=== PATIENT | female | born 1955 | race Caucasian/White ===

== ENCOUNTER 2017-07-10 18:02 | Inpatient (IN) | payer BC ==
[~2017-07-10] VITALS: Ht 165.1 cm; Wt 74.9 kg
[2017-07-10] MEDS ORDERED: IV NORMAL SALINE 1000ML BAG 1,000 ML IV SCH (19:12)
[2017-07-10] MEDS ORDERED: ONDANSETRON PF 4 MG/2 ML VIAL. IV ONE (19:15)
[2017-07-10 19:23] LABS: BILIRUBIN,URINE NEGATIVE (NEG); GLUCOSE,URINE NEGATIVE (NEG); NITRITE,URINE NEGATIVE (NEG); PROTEIN,URINE NEGATIVE (NEG-TRACE); UROBILINOGEN,URINE 0.2 mg/dL (0.2 mg/dL)
[2017-07-10 19:37] LABS: BASO % 0 % (0-3); EOS % 1 % (0-3); HEMATOCRIT 34.6 % (36.0-47.0); HEMOGLOBIN 11.5 g/dL (12.0-15.5); LYMPH % 8 % (24-48); MEAN CORPUSCULAR HEMOGLOBIN 32 pg (25-35); MEAN CORPUSCULAR HGB CONC 33 g/dL (31-37); MEAN CORPUSCULAR VOLUME 95 fL (79-100); MONO % 6 % (0-9); NEUT % 85 % (31-73); PLATELET COUNT 258 x10^3/uL (140-400); RED BLOOD COUNT 3.65 x10^6/uL (3.50-5.40); RED CELL DISTRIBUTION WIDTH 12.7 % (11.5-14.5); WHITE BLOOD COUNT 12.8 x10^3/uL (4.0-11.0)
[2017-07-10] MEDS: HYDROmorphone 2 MG/ML VIAL IV/SQ PRN ×3 (19:45→21:20)
[2017-07-10 19:46] LABS: BACTERIA,URINE 0 /HPF (0-FEW); WBC,URINE RARE /HPF (0-4)
[2017-07-10 19:49] LABS: CALCIUM 8.4 mg/dL (8.5-10.1); CREATININE 0.6 mg/dL (0.6-1.0); POTASSIUM 3.6 mmol/L (3.5-5.1)
[2017-07-10 19:55] LABS: ALBUMIN 3.7 g/dL (3.4-5.0); DIRECT BILIRUBIN 0.2 mg/dL (0.0-0.2); TOTAL BILIRUBIN 0.4 mg/dL (0.2-1.0); TOTAL PROTEIN 6.6 g/dL (6.4-8.2)
[2017-07-10] MEDS ORDERED: CONTRAST GIVEN MC PRN (20:15)
[2017-07-10] MEDS ORDERED: IOHEXOL 300 MG/ML 100ML VIAL. IV ONE (20:15)
[2017-07-10 20:18] LABS: % EOS 1 % (0-5)
[2017-07-10 20:19] LABS: PLT ESTIMATE ADEQUATE (ADEQUATE)
--- NOTE | 2017-07-10 20:46 | RAD ---
CT ABD PELV W/ IV CONTRST ONLY dated 07/10/2017 8:19 PM Indication:severe rt sided abd pain today, Comparison: November 29, 2013 exam. Technique: Following injection of 75 mL of Omnipaque 300 IV, images were obtained through the abdomen and pelvis. No oral contrast was given. One or more of the following individualized dose reduction techniques were utilized for this examination: 1. Automated exposure control 2. Adjustment of the mA and/or kV according to patient size 3. Use of iterative reconstruction technique Findings: The liver has a prominent Oseas's lobe. It is otherwise unremarkable. The spleen is normal in size without focal lesions. The pancreas, adrenal glands, and kidneys are unremarkable except for small parapelvic renal cysts bilaterally and a small cyst in the lower pole the right kidney which are unchanged. There has been a cholecystectomy. The unopacified bowel loops are unremarkable. The appendix is normal in appearance. There is no free fluid. The uterus is unremarkable. No pelvic mass is seen. No adenopathy is identified. IMPRESSION: The CT of the abdomen and pelvis shows no significant abnormality. The appendix is normal. Electronically signed by: Ros Barone MD (07/10/2017 8:42 PM) [facility]
[2017-07-10] MEDS ORDERED: ONDANSETRON PF 4 MG/2 ML VIAL. IV PRN (21:00)
--- NOTE | 2017-07-10 21:09 | PHYS DOC ---
Past Medical History Past Medical History: Asthma, Depression, High Cholesterol, Hypertension Past Surgical History: Cholecystectomy, Knee Replacement, Tonsillectomy, Other Additional Past Surgical Histo: carpal tunnel Alcohol Use: Occasionally Drug Use: None Adult General Chief Complaint Chief Complaint: ABDOMINAL PAIN HPI HPI 62-year-old female presenting the emergency department today with abdominal pain. She complains of periumbilical/epigastric abdominal pain that radiates to her back. It is sharp pain that is moderate intermittent and associated with nausea. She denies vomiting. She denies fevers or chills. Review of systems is negative for chest pain shortness of breath. Negative for fevers diarrhea or blood in stool. All other review of systems is negative unless otherwise noted in history of present illness. ED course: 62-year-old female presenting with epigastric/periumbilical abdominal pain. Upon arrival the patient is afebrile with a normal heart rate. Pertinent physical exam findings show soft nontender abdomen. Otherwise lungs are clear to auscultation. Blood work obtained. IV established IV fluids administered. EKG ordered and obtained which shows sinus rhythm with a regular rate. ST segments congruent. Not suggestive of ACS. Lipase notably elevated. Urinalysis negative. Chemistry unremarkable other than mild transaminitis. She has a history of cholecystectomy. CT the abdomen pelvis obtained which showed no evidence of choledocholithiasis. I discussed the case with Dr. Herrera who accepted the patient for admission. I placed a GI consult. I placed basic bridge orders and the patient was subsequent admitted to our hospital for further evaluation and care. Review of Systems Review of Systems SEE ABOVE. Current Medications Current Medications Current Medications Medications (Trade) Dose Ordered Sig/Maria Eugenia Start Time Stop Time Status Last Admin Dose Admin Hydromorphone HCl (Dilaudid) 0.5 mg PRN Q15MIN PRN 07/10/17 19:15 07/11/17 19:14 07/10/17 20:49 0.5 MG Info (Do NOT chart on this entry -- for MONITORING) 1 each PRN DAILY PRN 07/10/17 20:15 07/12/17 20:14 Iohexol (Omnipaque 300 Mg/ml) 75 ml 1X ONCE 07/10/17 20:15 07/10/17 20:16 DC 07/10/17 20:22 75 ML Morphine Sulfate 2 mg PRN Q2HR PRN 07/10/17 21:00 07/11/17 20:59 UNV Ondansetron HCl (Zofran) 4 mg PRN Q8HRS PRN 07/10/17 21:00 07/11/17 20:59 UNV Sodium Chloride 1,000 ml @ 100 mls/hr Q10H 07/10/17 20:55 07/11/17 20:54 UNV Allergies Allergies Allergies Coded Allergies Type Severity Reaction Last Updated Verified adhesive Allergy Unknown STERISTRIPS 11/29/13 Yes aspirin Allergy Unknown 11/29/13 Yes butalbital Allergy Unknown 11/29/13 Yes caffeine Allergy Unknown 11/29/13 Yes latex Allergy Unknown 11/29/13 Yes Physical Exam Physical Exam SEE ABOVE Constitutional: Well developed, well nourished, no acute distress HENT: Normocephalic, atraumatic, bilateral external ears normal, oropharynx moist, no oral exudates, nose normal. [] Eyes: PERRLA, EOMI, conjunctiva normal, no discharge. [] Neck: Normal range of motion, no tenderness, supple, no stridor. [] Cardiovascular:Heart rate regular rhythm, no murmur [] Lungs & Thorax: Bilateral breath sounds clear to auscultation [] Abdomen: Bowel sounds normal, soft, no tenderness, no masses, no pulsatile masses. [] Skin: Warm, dry, no erythema, no rash. [] Back: No tenderness, no CVA tenderness. [] Extremities: No tenderness, no cyanosis, no clubbing, ROM intact, no edema. [] Neurologic: Alert and oriented X 3, normal motor function, normal sensory function, no focal deficits noted. [] Psychologic: Affect normal, judgement normal, mood normal. [] Current Patient Data Vital Signs Vital Signs Date Time Temp Pulse Resp B/P (MAP) Pulse Ox O2 Delivery O2 Flow Rate FiO2 07/10/17 20:49 18 94 Room Air 07/10/17 20:46 79 126/59 (81) Lab Values Laboratory Tests Test 07/10/17 18:50 07/10/17 19:28 Urine Collection Type Unknown Urine Color Yellow Urine Clarity Clear Urine pH 6.0 Urine Specific [place] 1.015 Urine Protein Negative mg/dL (NEG-TRACE) Urine Glucose (UA) Negative mg/dL (NEG) Urine Ketones (Stick) Negative mg/dL (NEG) Urine Blood Negative (NEG) Urine Nitrite Negative (NEG) Urine Bilirubin Negative (NEG) Urine Urobilinogen Dipstick 0.2 mg/dL (0.2 mg/dL) Urine Leukocyte Esterase Negative (NEG) Urine RBC 1-2 /HPF (0-2) Urine WBC Rare /HPF (0-4) Urine Bacteria 0 /HPF (0-FEW) White Blood Count 12.8 x10^3/uL (4.0-11.0) H Red Blood Count 3.65 x10^6/uL (3.50-5.40) Hemoglobin 11.5 g/dL (12.0-15.5) L Hematocrit 34.6 % (36.0-47.0) L Mean Corpuscular Volume 95 fL (79-100) Mean Corpuscular Hemoglobin 32 pg (25-35) Mean Corpuscular Hemoglobin Concent 33 g/dL (31-37) Red Cell Distribution Width 12.7 % (11.5-14.5) Platelet Count 258 x10^3/uL (140-400) Neutrophils (%) (Auto) 85 % (31-73) H Lymphocytes (%) (Auto) 8 % (24-48) L Monocytes (%) (Auto) 6 % (0-9) Eosinophils (%) (Auto) 1 % (0-3) Basophils (%) (Auto) 0 % (0-3) Neutrophils # (Auto) 10.9 x10^3uL (1.8-7.7) H Lymphocytes # (Auto) 1.0 x10^3/uL (1.0-4.8) Monocytes # (Auto) 0.8 x10^3/uL (0.0-1.1) Eosinophils # (Auto) 0.1 x10^3/uL (0.0-0.7) Basophils # (Auto) 0.0 x10^3/uL (0.0-0.2) Segmented Neutrophils % 74 % (35-66) H Band Neutrophils % 15 % (0-9) H Lymphocytes % 6 % (24-48) L Monocytes % 4 % (0-10) Eosinophils % 1 % (0-5) Platelet Estimate Adequate (ADEQUATE) Giant Platelets Few Sodium Level 138 mmol/L (136-145) Potassium Level 3.6 mmol/L (3.5-5.1) Chloride Level 103 mmol/L (98-107) Carbon Dioxide Level 23 mmol/L (21-32) Anion Gap 12 (6-14) Blood Urea Nitrogen 19 mg/dL (7-20) Creatinine 0.6 mg/dL (0.6-1.0) Estimated GFR (Cockcroft-Gault) 102.0 Glucose Level 88 mg/dL (70-99) Lactic Acid Level 1.8 mmol/L (0.4-2.0) Calcium Level 8.4 mg/dL (8.5-10.1) L Total Bilirubin 0.4 mg/dL (0.2-1.0) Direct Bilirubin 0.2 mg/dL (0.0-0.2) Aspartate Amino Transferase (AST) 434 U/L (15-37) H Alanine Aminotransferase (ALT) 164 U/L (14-59) H Alkaline Phosphatase 136 U/L (46-116) H Troponin I Quantitative < 0.017 ng/mL (0.000-0.055) Total Protein 6.6 g/dL (6.4-8.2) Albumin 3.7 g/dL (3.4-5.0) Lipase 820 U/L (73-393) H Laboratory Tests 07/10/17 19:28 Laboratory Tests 07/10/17 19:28 EKG EKG [] Radiology/Procedures Radiology/Procedures [] Course & Med Decision Making Course & Med Decision Making Pertinent Labs and Imaging studies reviewed. (See chart for details) [] Dragon Disclaimer Dragon Disclaimer This electronic medical record was generated, in whole or in part, using a voice recognition dictation system. Departure Departure Impression: Primary Impression: Pancreatitis Disposition: ADMITTED INPATIENT Admitting Physician: Barb Herrera Condition: STABLE Referrals: JOMAR MCNEAL Jr, MD (PCP) ARY BURCIAGA MD Jul 10, 2017 21:08
[2017-07-10 21:57] VITALS: BP 130/79
[2017-07-10 23:00] VITALS: BP 122/66
[2017-07-10] MEDS: IV NORMAL SALINE 1000ML BAG 1,000 ML IV SCH (23:08)
[2017-07-10] MEDS: MORPHINE SULFATE 4 MG/ML DISP.SYRIN. IV PRN (23:16)
[2017-07-11 03:00] VITALS: BP 141/76
[2017-07-11] MEDS: MORPHINE SULFATE 4 MG/ML DISP.SYRIN. IV PRN ×4 (03:08→09:52)
--- NOTE | 2017-07-11 06:39 | EKG ---
[facility] [address] [place] [address] Test Date: 2017-07-10 Test Time: 19:30:53 Pat Name: AMIRA ALEX Department: Room: 426 1 Gender: F Teachers Assistant: : 1955 Requested By: ARY BURCIAGA Order Number: [id number] Reading MD: Tristian Monae MD Measurements Intervals [place] Rate: 73 P: 41 MA: 192 QRS: 42 QRSD: 90 T: 59 QT: 388 QTc: 431 Interpretive Statements SINUS RHYTHM Electronically Signed On 07-11-2017 10:27:29 [employer] by Tristian Monae MD
[2017-07-11 07:00] VITALS: BP 132/73
[2017-07-11] MEDS: IV NORMAL SALINE 1000ML BAG 1,000 ML IV SCH ×3 (07:33→23:00)
[2017-07-11] MEDS ORDERED: ONDANSETRON PF 4 MG/2 ML VIAL. IV PRN (09:15)
[2017-07-11] MEDS ORDERED: ACETAMINOPHEN 325 MG TABLET. PO PRN (09:15)
[2017-07-11] MEDS ORDERED: DOCUSATE SODIUM 100 MG CAPSULE. PO PRN (09:15)
[2017-07-11] MEDS ORDERED: MORPHINE SULFATE 4 MG/ML DISP.SYRIN. IV PRN (09:15)
[2017-07-11] MEDS ORDERED: hydrALAZINE 20 MG/ML VIAL. IVP PRN (09:15)
[2017-07-11 10:20] LABS: BASO % 0 % (0-3); EOS % 2 % (0-3); HEMATOCRIT 34.8 % (36.0-47.0); HEMOGLOBIN 11.4 g/dL (12.0-15.5); LYMPH # 0.8 x10^3/uL (1.0-4.8); LYMPH % 10 % (24-48); MEAN CORPUSCULAR HEMOGLOBIN 31 pg (25-35); MEAN CORPUSCULAR HGB CONC 33 g/dL (31-37); MEAN CORPUSCULAR VOLUME 95 fL (79-100); MONO % 8 % (0-9); NEUT % 81 % (31-73); PLATELET COUNT 221 x10^3/uL (140-400); RED BLOOD COUNT 3.65 x10^6/uL (3.50-5.40); RED CELL DISTRIBUTION WIDTH 12.8 % (11.5-14.5); WHITE BLOOD COUNT 8.3 x10^3/uL (4.0-11.0)
[2017-07-11 10:33] LABS: CREATININE 0.6 mg/dL (0.6-1.0); POTASSIUM 3.3 mmol/L (3.5-5.1)
[2017-07-11 11:00] VITALS: BP 117/76
[2017-07-11] MEDS ORDERED: POTASSIUM CHLORIDE 20 MEQ TABLET.ER. PO ONE (11:30)
[2017-07-11] MEDS ORDERED: methylPREDNISolone SOD SUCC PF 125 MG/2 ML VIAL. IV SCH (14:00)
--- NOTE | 2017-07-11 14:21 | PDOC1 ---
History and Physical Date of Admission Date of Admission 07/10/17 Identification/Chief Complaint Chief Complaint abd pain Problems: Source Source: Chart review, Patient History of Present Illness History of Present Illness HPI HPI 62-year-old female presenting the emergency department for abd pain x2days. pt said she started to have Rt side abd pain last night, with nausea, no vomiting, the pain felt like sharp, 8/10, constant. She ate outside for lunch. 1 time loose BM, not melena. denies gi problems before, never got EGD, got colonoscopy before was neg. denies fever, chills, cough, sob. had cholecystectomy. CT neg in ER, lipase 800. admit drinking ETOH, but denies heavy drinker. did drink 2-3 beers last night. Past Medical History Past Medical History Asthma, Depression, High Cholesterol, Hypertension Cardiovascular: HTN Past Surgical History Past Surgical History: Cholecystectomy, Total knee replacement, Tonsillectomy Family History Family History: Hypertension Social History Smoke: No ALCOHOL: social Drugs: None Current Medications Current Medications Current Medications Medications (Trade) Dose Ordered Sig/Maria Eugenia Start Time Stop Time Status Last Admin Dose Admin Acetaminophen (Tylenol) 650 mg PRN Q6HRS PRN 07/11/17 09:15 Docusate Sodium (Colace) 100 mg PRN DAILY PRN 07/11/17 09:15 Hydralazine HCl (Apresoline Inj) 10 mg PRN Q4HRS PRN 07/11/17 09:15 Hydromorphone HCl (Dilaudid) 0.5 mg PRN Q15MIN PRN 07/10/17 19:15 07/11/17 19:14 07/10/17 21:20 0.5 MG Info (Do NOT chart on this entry -- for MONITORING) 1 each PRN DAILY PRN 07/10/17 20:15 07/12/17 20:14 Iohexol (Omnipaque 300 Mg/ml) 75 ml 1X ONCE 07/10/17 20:15 07/10/17 20:16 DC 07/10/17 20:22 75 ML Morphine Sulfate 2 mg PRN Q2HR PRN 07/11/17 09:15 Ondansetron HCl (Zofran) 4 mg PRN Q6HRS PRN 07/11/17 09:15 Potassium Chloride (Klor-Con) 40 meq 1X ONCE 07/11/17 11:30 07/11/17 11:31 DC 07/11/17 12:24 40 MEQ Sodium Chloride 1,000 ml @ 100 mls/hr Q10H 07/10/17 20:55 07/11/17 20:54 07/11/17 07:33 100 MLS/HR Tramadol HCl (Ultram) 50 mg PRN Q6HRS PRN 07/11/17 09:15 Allergies Allergies Allergies Coded Allergies Type Severity Reaction Last Updated Verified adhesive Allergy Intermediate STERISTRIPS 07/11/17 Yes aspirin Allergy Intermediate 07/11/17 Yes butalbital Allergy Intermediate 07/11/17 Yes caffeine Allergy Intermediate 07/11/17 Yes latex Allergy Intermediate 07/11/17 Yes ROS Review of System CONSTITUTIONAL: No fever or chills EYES: No recent changes SKIN: No rash or itching CARDIOVASCULAR: No chest pain, syncope, palpitations, or edema RESPIRATORY: No SOB or cough GASTROINTESTINAL: No nausea, vomiting or abdominal pain NEUROLOGICAL: No headaches or weakness ENDOCRINE: No cold or heat intolerance GENITOURINARY: No urgency or frequency of urination MUSCULOSKELETAL: No back pain or joint pain LYMPHATICS: No enlarged lymph nodes PSYCHIATRIC: No anxiety or depression Physical Exam Physical Exam GEN.: No apparent distress. Alert and oriented. HEENT: Head is normocephalic, atraumatic NECK: Supple. LUNGS: Clear to auscultation. HEART: RRR, S1, S2 present. Peripheral pulses intact ABDOMEN: Soft, Positive bowel sounds. right side moderate tenderness, no guarding or rebound. EXTREMITIES: Without any cyanosis. NEUROLOGIC: Normal speech, normal tone PSYCHIATRIC: Normal affect, normal mood. SKIN: No ulcerations Vitals Vitals Vital Signs Date Time Temp Pulse Resp B/P (MAP) Pulse Ox O2 Delivery O2 Flow Rate FiO2 07/11/17 11:00 98.7 76 18 117/76 (90) 94 Room Air 98.7 Labs Labs Laboratory Tests Test 07/10/17 18:50 07/10/17 19:28 07/11/17 09:45 Urine Collection Type Unknown Urine Color Yellow Urine Clarity Clear Urine pH 6.0 Urine Specific [place] 1.015 Urine Protein Negative mg/dL (NEG-TRACE) Urine Glucose (UA) Negative mg/dL (NEG) Urine Ketones (Stick) Negative mg/dL (NEG) Urine Blood Negative (NEG) Urine Nitrite Negative (NEG) Urine Bilirubin Negative (NEG) Urine Urobilinogen Dipstick 0.2 mg/dL (0.2 mg/dL) Urine Leukocyte Esterase Negative (NEG) Urine RBC 1-2 /HPF (0-2) Urine WBC Rare /HPF (0-4) Urine Bacteria 0 /HPF (0-FEW) White Blood Count 12.8 x10^3/uL (4.0-11.0) 8.3 x10^3/uL (4.0-11.0) Red Blood Count 3.65 x10^6/uL (3.50-5.40) 3.65 x10^6/uL (3.50-5.40) Hemoglobin 11.5 g/dL (12.0-15.5) 11.4 g/dL (12.0-15.5) Hematocrit 34.6 % (36.0-47.0) 34.8 % (36.0-47.0) Mean Corpuscular Volume 95 fL (79-100) 95 fL (79-100) Mean Corpuscular Hemoglobin 32 pg (25-35) 31 pg (25-35) Mean Corpuscular Hemoglobin Concent 33 g/dL (31-37) 33 g/dL (31-37) Red Cell Distribution Width 12.7 % (11.5-14.5) 12.8 % (11.5-14.5) Platelet Count 258 x10^3/uL (140-400) 221 x10^3/uL (140-400) Neutrophils (%) (Auto) 85 % (31-73) 81 % (31-73) Lymphocytes (%) (Auto) 8 % (24-48) 10 % (24-48) Monocytes (%) (Auto) 6 % (0-9) 8 % (0-9) Eosinophils (%) (Auto) 1 % (0-3) 2 % (0-3) Basophils (%) (Auto) 0 % (0-3) 0 % (0-3) Neutrophils # (Auto) 10.9 x10^3uL (1.8-7.7) 6.7 x10^3uL (1.8-7.7) Lymphocytes # (Auto) 1.0 x10^3/uL (1.0-4.8) 0.8 x10^3/uL (1.0-4.8) Monocytes # (Auto) 0.8 x10^3/uL (0.0-1.1) 0.6 x10^3/uL (0.0-1.1) Eosinophils # (Auto) 0.1 x10^3/uL (0.0-0.7) 0.1 x10^3/uL (0.0-0.7) Basophils # (Auto) 0.0 x10^3/uL (0.0-0.2) 0.0 x10^3/uL (0.0-0.2) Segmented Neutrophils % 74 % (35-66) Band Neutrophils % 15 % (0-9) Lymphocytes % 6 % (24-48) Monocytes % 4 % (0-10) Eosinophils % 1 % (0-5) Platelet Estimate Adequate (ADEQUATE) Giant Platelets Few Sodium Level 138 mmol/L (136-145) 144 mmol/L (136-145) Potassium Level 3.6 mmol/L (3.5-5.1) 3.3 mmol/L (3.5-5.1) Chloride Level 103 mmol/L (98-107) 109 mmol/L (98-107) Carbon Dioxide Level 23 mmol/L (21-32) 26 mmol/L (21-32) Anion Gap 12 (6-14) 9 (6-14) Blood Urea Nitrogen 19 mg/dL (7-20) 10 mg/dL (7-20) Creatinine 0.6 mg/dL (0.6-1.0) 0.6 mg/dL (0.6-1.0) Estimated GFR (Cockcroft-Gault) 102.0 102.0 Glucose Level 88 mg/dL (70-99) 78 mg/dL (70-99) Lactic Acid Level 1.8 mmol/L (0.4-2.0) Calcium Level 8.4 mg/dL (8.5-10.1) 8.0 mg/dL (8.5-10.1) Total Bilirubin 0.4 mg/dL (0.2-1.0) Direct Bilirubin 0.2 mg/dL (0.0-0.2) Aspartate Amino Transf (AST/SGOT) 434 U/L (15-37) Alanine Aminotransferase (ALT/SGPT) 164 U/L (14-59) Alkaline Phosphatase 136 U/L (46-116) Troponin I Quantitative < 0.017 ng/mL (0.000-0.055) Total Protein 6.6 g/dL (6.4-8.2) Albumin 3.7 g/dL (3.4-5.0) Lipase 820 U/L (73-393) 99 U/L (73-393) Laboratory Tests Test 07/10/17 18:50 07/10/17 19:28 07/11/17 09:45 Urine Collection Type Unknown Urine Color Yellow Urine Clarity Clear Urine pH 6.0 Urine Specific [place] 1.015 Urine Protein Negative mg/dL (NEG-TRACE) Urine Glucose (UA) Negative mg/dL (NEG) Urine Ketones (Stick) Negative mg/dL (NEG) Urine Blood Negative (NEG) Urine Nitrite Negative (NEG) Urine Bilirubin Negative (NEG) Urine Urobilinogen Dipstick 0.2 mg/dL (0.2 mg/dL) Urine Leukocyte Esterase Negative (NEG) Urine RBC 1-2 /HPF (0-2) Urine WBC Rare /HPF (0-4) Urine Bacteria 0 /HPF (0-FEW) White Blood Count 12.8 x10^3/uL (4.0-11.0) 8.3 x10^3/uL (4.0-11.0) Red Blood Count 3.65 x10^6/uL (3.50-5.40) 3.65 x10^6/uL (3.50-5.40) Hemoglobin 11.5 g/dL (12.0-15.5) 11.4 g/dL (12.0-15.5) Hematocrit 34.6 % (36.0-47.0) 34.8 % (36.0-47.0) Mean Corpuscular Volume 95 fL (79-100) 95 fL (79-100) Mean Corpuscular Hemoglobin 32 pg (25-35) 31 pg (25-35) Mean Corpuscular Hemoglobin Concent 33 g/dL (31-37) 33 g/dL (31-37) Red Cell Distribution Width 12.7 % (11.5-14.5) 12.8 % (11.5-14.5) Platelet Count 258 x10^3/uL (140-400) 221 x10^3/uL (140-400) Neutrophils (%) (Auto) 85 % (31-73) 81 % (31-73) Lymphocytes (%) (Auto) 8 % (24-48) 10 % (24-48) Monocytes (%) (Auto) 6 % (0-9) 8 % (0-9) Eosinophils (%) (Auto) 1 % (0-3) 2 % (0-3) Basophils (%) (Auto) 0 % (0-3) 0 % (0-3) Neutrophils # (Auto) 10.9 x10^3uL (1.8-7.7) 6.7 x10^3uL (1.8-7.7) Lymphocytes # (Auto) 1.0 x10^3/uL (1.0-4.8) 0.8 x10^3/uL (1.0-4.8) Monocytes # (Auto) 0.8 x10^3/uL (0.0-1.1) 0.6 x10^3/uL (0.0-1.1) Eosinophils # (Auto) 0.1 x10^3/uL (0.0-0.7) 0.1 x10^3/uL (0.0-0.7) Basophils # (Auto) 0.0 x10^3/uL (0.0-0.2) 0.0 x10^3/uL (0.0-0.2) Segmented Neutrophils % 74 % (35-66) Band Neutrophils % 15 % (0-9) Lymphocytes % 6 % (24-48) Monocytes % 4 % (0-10) Eosinophils % 1 % (0-5) Platelet Estimate Adequate (ADEQUATE) Giant Platelets Few Sodium Level 138 mmol/L (136-145) 144 mmol/L (136-145) Potassium Level 3.6 mmol/L (3.5-5.1) 3.3 mmol/L (3.5-5.1) Chloride Level 103 mmol/L (98-107) 109 mmol/L (98-107) Carbon Dioxide Level 23 mmol/L (21-32) 26 mmol/L (21-32) Anion Gap 12 (6-14) 9 (6-14) Blood Urea Nitrogen 19 mg/dL (7-20) 10 mg/dL (7-20) Creatinine 0.6 mg/dL (0.6-1.0) 0.6 mg/dL (0.6-1.0) Estimated GFR (Cockcroft-Gault) 102.0 102.0 Glucose Level 88 mg/dL (70-99) 78 mg/dL (70-99) Lactic Acid Level 1.8 mmol/L (0.4-2.0) Calcium Level 8.4 mg/dL (8.5-10.1) 8.0 mg/dL (8.5-10.1) Total Bilirubin 0.4 mg/dL (0.2-1.0) Direct Bilirubin 0.2 mg/dL (0.0-0.2) Aspartate Amino Transf (AST/SGOT) 434 U/L (15-37) Alanine Aminotransferase (ALT/SGPT) 164 U/L (14-59) Alkaline Phosphatase 136 U/L (46-116) Troponin I Quantitative < 0.017 ng/mL (0.000-0.055) Total Protein 6.6 g/dL (6.4-8.2) Albumin 3.7 g/dL (3.4-5.0) Lipase 820 U/L (73-393) 99 U/L (73-393) VTE Prophylaxis Ordered VTE Prophylaxis Devices: Yes VTE Pharmacological Prophylaxi: Yes Assessment/Plan Assessment/Plan abd pain, possible 2/2 ETOH related acute pancreatitis, vs. alcohol hepatitis elevated transaminities, 2/2 alcohol likely htn hld intermittent asthma major depression disorder hypokalemia plan: gi consult LIPase , LFT tmr lipase normal now clear liquid diet cont home meds, need verify dvt ppx IVF pain control CT NEG, CHECK US LTD REPLete ANNETTE TANNER MD Jul 11, 2017 14:21
[2017-07-11 15:00] VITALS: BP 142/72
[2017-07-11 15:14] LABS: BARBITURATES NEG (NEG); BENZODIAZEPINES NEG (NEG); CANNABINOIDS NEG (NEG); COCAINE NEG (NEG); METHADONE NEG (NEG); OPIATES POS (NEG); PHENCYCLIDINE NEG (NEG)
[2017-07-11] MEDS: hydroCHLOROthiazide 25 MG TABLET PO SCH (15:17)
[2017-07-11] MEDS: amLODIPine BESYLATE 5 MG TABLET PO SCH (15:18)
[2017-07-11] MEDS: buPROPion SR 150 MG TABLET.SA PO SCH (15:18)
[2017-07-11] MEDS: MONTELUKAST SODIUM 10 MG TABLET. PO SCH (15:18)
[2017-07-11] MEDS: SERTRALINE 50 MG TABLET. PO SCH (15:18)
[2017-07-11] MEDS: CETIRIZINE HCL 10 MG TABLET. PO SCH (15:18)
[2017-07-11] MEDS: ENOXAPARIN 40 MG/0.4 ML SYRINGE. SQ SCH (15:19)
[2017-07-11] MEDS: LOSARTAN POTASSIUM 50 MG TABLET. PO SCH (15:19)
--- NOTE | 2017-07-11 16:10 | RAD ---
Right upper quadrant abdominal ultrasound, 07/11/2017: History: Pancreatitis The gallbladder is surgically absent. The common hepatic duct at the alex hepatis measures 13 mm, similar to on the 07/10/2017 CT study. The central intrahepatic bile ducts are mildly prominent. The distal common bile duct at the level of the head of the pancreas is not clearly visualized. The pancreatic body is unremarkable. No hepatic mass is seen. The visualized portions of the right kidney show no abnormality. IMPRESSION: 1. Status post cholecystectomy. 2. Mild dilatation of the common hepatic duct. 3. No common duct calculus is identified, although the distal common bile duct in the pancreatic head was not clearly visualized sonographically.
[2017-07-11] MEDS: ALBUTEROL SULFATE 2.5 MG/3 ML NEBU. NEB SCH ×2 (16:11→20:00)
[2017-07-11] MEDS: traMADol 50 MG TABLET PO PRN (16:49)
[2017-07-11 19:15] VITALS: BP 143/79
[2017-07-11] MEDS: BUDESONIDE 0.5 MG/2 ML NEBU. NEB SCH (19:59)
[2017-07-11] MEDS ORDERED: NON FORMULARY ITEM INH SCH (21:00)
[2017-07-11] MEDS ORDERED: ATORVASTATIN CALCIUM 20 MG TABLET PO SCH (21:00)
[2017-07-11] MEDS: HYDROcodone/APAP 7.5/325MG 1 TAB TABLET PO PRN (21:22)
[2017-07-11] MEDS: GABAPENTIN 100 MG CAPSULE. PO SCH (21:22)
[2017-07-11 23:27] VITALS: BP 146/76
[2017-07-12] MEDS: traMADol 50 MG TABLET PO PRN (00:22)
[2017-07-12 02:48] VITALS: BP 160/76
[2017-07-12 05:07] LABS: BASO % 0 % (0-3); EOS % 3 % (0-3); HEMATOCRIT 34.1 % (36.0-47.0); HEMOGLOBIN 11.4 g/dL (12.0-15.5); LYMPH # 0.9 x10^3/uL (1.0-4.8); LYMPH % 11 % (24-48); MEAN CORPUSCULAR HEMOGLOBIN 32 pg (25-35); MEAN CORPUSCULAR HGB CONC 33 g/dL (31-37); MEAN CORPUSCULAR VOLUME 96 fL (79-100); MONO % 8 % (0-9); NEUT % 78 % (31-73); PLATELET COUNT 223 x10^3/uL (140-400); RED BLOOD COUNT 3.54 x10^6/uL (3.50-5.40); RED CELL DISTRIBUTION WIDTH 12.8 % (11.5-14.5); WHITE BLOOD COUNT 8.7 x10^3/uL (4.0-11.0)
[2017-07-12 05:38] LABS: ALBUMIN 3.1 g/dL (3.4-5.0); CALCIUM 8.3 mg/dL (8.5-10.1); CREATININE 0.6 mg/dL (0.6-1.0); DIRECT BILIRUBIN 0.2 mg/dL (0.0-0.2); POTASSIUM 3.1 mmol/L (3.5-5.1); TOTAL BILIRUBIN 0.5 mg/dL (0.2-1.0); TOTAL PROTEIN 6.1 g/dL (6.4-8.2)
[2017-07-12 07:00] VITALS: BP 138/82
[2017-07-12] MEDS: BUDESONIDE 0.5 MG/2 ML NEBU. NEB SCH ×2 (08:09→19:31)
[2017-07-12] MEDS: ALBUTEROL SULFATE 2.5 MG/3 ML NEBU. NEB SCH ×4 (08:10→19:31)
[2017-07-12 08:41] LABS: MAGNESIUM 1.8 mg/dL (1.8-2.4); PHOSPHORUS 2.3 mg/dL (2.6-4.7); POTASSIUM 3.3 mmol/L (3.5-5.1)
[2017-07-12] MEDS: HYDROcodone/APAP 7.5/325MG 1 TAB TABLET PO PRN (08:55)
[2017-07-12] MEDS: hydroCHLOROthiazide 25 MG TABLET PO SCH (08:55)
[2017-07-12] MEDS: CETIRIZINE HCL 10 MG TABLET. PO SCH (08:56)
[2017-07-12] MEDS: amLODIPine BESYLATE 5 MG TABLET PO SCH (08:56)
[2017-07-12] MEDS: LOSARTAN POTASSIUM 50 MG TABLET. PO SCH (08:56)
[2017-07-12] MEDS: buPROPion SR 150 MG TABLET.SA PO SCH (08:56)
[2017-07-12] MEDS: MONTELUKAST SODIUM 10 MG TABLET. PO SCH (08:56)
[2017-07-12] MEDS: SERTRALINE 50 MG TABLET. PO SCH (08:59)
--- NOTE | 2017-07-12 08:59 | PDOC2 ---
GI CONSULT Reason For Consult: Pancreatitis HPI: HPI: 62 y/o female w/ acute onset periumbilical/right-sided abd pain on Tuesday associated w/ nausea and chills/sweats. Found w/ elevated lipase (now WNL) and LFTs. Hepatitis panel pending. CT unremarkable w/ normal pancreas, US w/ dilated common hepatic duct (13mm). Pain has improved, tolerating clears. No h/o GERD, did have EGD years ago, no significant findings recalls. No previous pancreas or liver history. S/p cholecystectomy (for stones she thinks) . Intermittent loose stools, unchanged. No melena, hematochezia. 2-3 previous colonoscopies, h/o polyps, last colonoscopy last year reportedly normal (in [place]). Chronic back pain on Lortab and ibuprofen (8 daily). Drinks 12-15 beers weekly. PMH: PMH: HTN, HLD, asthma, depression, colon polyps, cholecystectomy (stones), right knee arthroscopy, back surgeries x 2, bilateral CTR, tonsillectomy, left lumpectomy (benign) FH: Family History: CAD, Other (GB disease) Social History: Smoke: Quit ALCOHOL: other (12-15 beers weekly) Drugs: None ROS: GEN: +chills, sweats HEENT: Denies blurred vision, sore throat CV: Denies chest pain RESP: Denies shortness of air, cough GI: Per HPI : Denies hematuria, dysuria ENDO: Denies weight changes NEURO: Denies confusion, dizziness MSK: +back pain SKIN: Denies jaundice, pruritus Vitals: Vitals: Vital Signs Date Time Temp Pulse Resp B/P (MAP) Pulse Ox O2 Delivery O2 Flow Rate FiO2 07/12/17 08:11 98 Room Air 07/12/17 07:00 97.9 66 16 138/82 (100) 97.9 Labs: Labs: Laboratory Tests Test 07/11/17 09:45 07/11/17 13:15 07/12/17 03:45 07/12/17 08:15 White Blood Count 8.3 x10^3/uL (4.0-11.0) 8.7 x10^3/uL (4.0-11.0) Red Blood Count 3.65 x10^6/uL (3.50-5.40) 3.54 x10^6/uL (3.50-5.40) Hemoglobin 11.4 g/dL (12.0-15.5) 11.4 g/dL (12.0-15.5) Hematocrit 34.8 % (36.0-47.0) 34.1 % (36.0-47.0) Mean Corpuscular Volume 95 fL (79-100) 96 fL (79-100) Mean Corpuscular Hemoglobin 31 pg (25-35) 32 pg (25-35) Mean Corpuscular Hemoglobin Concent 33 g/dL (31-37) 33 g/dL (31-37) Red Cell Distribution Width 12.8 % (11.5-14.5) 12.8 % (11.5-14.5) Platelet Count 221 x10^3/uL (140-400) 223 x10^3/uL (140-400) Neutrophils (%) (Auto) 81 % (31-73) 78 % (31-73) Lymphocytes (%) (Auto) 10 % (24-48) 11 % (24-48) Monocytes (%) (Auto) 8 % (0-9) 8 % (0-9) Eosinophils (%) (Auto) 2 % (0-3) 3 % (0-3) Basophils (%) (Auto) 0 % (0-3) 0 % (0-3) Neutrophils # (Auto) 6.7 x10^3uL (1.8-7.7) 6.8 x10^3uL (1.8-7.7) Lymphocytes # (Auto) 0.8 x10^3/uL (1.0-4.8) 0.9 x10^3/uL (1.0-4.8) Monocytes # (Auto) 0.6 x10^3/uL (0.0-1.1) 0.7 x10^3/uL (0.0-1.1) Eosinophils # (Auto) 0.1 x10^3/uL (0.0-0.7) 0.3 x10^3/uL (0.0-0.7) Basophils # (Auto) 0.0 x10^3/uL (0.0-0.2) 0.0 x10^3/uL (0.0-0.2) Sodium Level 144 mmol/L (136-145) 144 mmol/L (136-145) Potassium Level 3.3 mmol/L (3.5-5.1) 3.1 mmol/L (3.5-5.1) 3.3 mmol/L (3.5-5.1) Chloride Level 109 mmol/L (98-107) 109 mmol/L (98-107) Carbon Dioxide Level 26 mmol/L (21-32) 27 mmol/L (21-32) Anion Gap 9 (6-14) 8 (6-14) Blood Urea Nitrogen 10 mg/dL (7-20) 6 mg/dL (7-20) Creatinine 0.6 mg/dL (0.6-1.0) 0.6 mg/dL (0.6-1.0) Estimated GFR (Cockcroft-Gault) 102.0 102.0 Glucose Level 78 mg/dL (70-99) 93 mg/dL (70-99) Calcium Level 8.0 mg/dL (8.5-10.1) 8.3 mg/dL (8.5-10.1) Lipase 99 U/L (73-393) 102 U/L (73-393) Urine Opiates Screen Pos (NEG) Urine Methadone Screen Neg (NEG) Urine Barbiturates Neg (NEG) Urine Phencyclidine Screen Neg (NEG) Urine Amphetamine/Methamphetamine Neg (NEG) Urine Benzodiazepines Screen Neg (NEG) Urine Cocaine Screen Neg (NEG) Urine Cannabinoids Screen Neg (NEG) Urine Ethyl Alcohol Neg (NEG) Total Bilirubin 0.5 mg/dL (0.2-1.0) Direct Bilirubin 0.2 mg/dL (0.0-0.2) Aspartate Amino Transf (AST/SGOT) 254 U/L (15-37) Alanine Aminotransferase (ALT/SGPT) 371 U/L (14-59) Alkaline Phosphatase 201 U/L (46-116) Total Protein 6.1 g/dL (6.4-8.2) Albumin 3.1 g/dL (3.4-5.0) Phosphorus Level 2.3 mg/dL (2.6-4.7) Magnesium Level 1.8 mg/dL (1.8-2.4) Allergies: Coded Allergies: adhesive (Verified Allergy, Intermediate, STERISTRIPS, 07/11/17) aspirin (Verified Allergy, Intermediate, 07/11/17) butalbital (Verified Allergy, Intermediate, 07/11/17) caffeine (Verified Allergy, Intermediate, 07/11/17) latex (Verified Allergy, Intermediate, 07/11/17) Medications: Current Medications Medications (Trade) Dose Ordered Sig/Maria Eugenia Route PRN Reason Start Time Stop Time Status Last Admin Dose Admin Tramadol HCl (Ultram) 50 mg PRN Q6HRS PRN PO PAIN 07/11/17 09:15 07/12/17 00:22 Potassium Chloride (Klor-Con) 40 meq 1X ONCE PO 07/11/17 11:30 07/11/17 11:31 DC 07/11/17 12:24 Cetirizine HCl (ZyrTEC) 10 mg DAILY PO 07/11/17 15:00 07/11/17 15:18 Acetaminophen/ Hydrocodone Bitart (Lortab 7.5/325) 1 tab PRN Q6HRS PRN PO PAIN 07/11/17 14:00 07/11/17 21:22 Losartan Potassium (Cozaar) 100 mg DAILY PO 07/11/17 15:00 07/11/17 15:19 Sertraline HCl (Zoloft) 100 mg DAILY PO 07/11/17 15:00 07/11/17 15:18 Bupropion HCl (Wellbutrin Sr) 150 mg DAILY PO 07/11/17 15:00 07/11/17 15:18 Montelukast Sodium (Singulair) 10 mg DAILY PO 07/11/17 15:00 07/11/17 15:18 Gabapentin (Neurontin) 100 mg HS PO 07/11/17 21:00 07/11/17 21:22 Amlodipine Besylate (Norvasc) 5 mg DAILY PO 07/11/17 15:00 07/11/17 15:18 Atorvastatin Calcium (Lipitor) 20 mg Q48H PO 07/11/17 21:00 07/11/17 21:22 Sodium Chloride 1,000 ml @ 100 mls/hr Q10H IV 07/11/17 14:15 07/11/17 23:00 Enoxaparin Sodium (Lovenox 40mg Syringe) 40 mg Q24H SQ 07/11/17 15:00 07/11/17 15:19 Hydrochlorothiazide (Hydrodiuril) 25 mg DAILY PO 07/11/17 15:00 07/11/17 15:17 Albuterol Sulfate (Ventolin Neb Soln) 2.5 mg RTQID [facility] 07/11/17 16:00 07/12/17 08:10 Budesonide (Pulmicort) 0.5 mg RTBID [facility] 07/11/17 20:00 07/12/17 08:09 Imaging: Imaging: CT A/P w/ IV contrast Findings: The liver has a prominent Oseas's lobe. It is otherwise unremarkable. The spleen is normal in size without focal lesions. The pancreas, adrenal glands, and kidneys are unremarkable except for small parapelvic renal cysts bilaterally and a small cyst in the lower pole the right kidney which are unchanged. There has been a cholecystectomy. The unopacified bowel loops are unremarkable. The appendix is normal in appearance. There is no free fluid. The uterus is unremarkable. No pelvic mass is seen. No adenopathy is identified. IMPRESSION: The CT of the abdomen and pelvis shows no significant abnormality. The appendix is normal. RUQ US The gallbladder is surgically absent. The common hepatic duct at the alex hepatis measures 13 mm, similar to on the 07/10/2017 CT study. The central intrahepatic bile ducts are mildly prominent. The distal common bile duct at the level of the head of the pancreas is not clearly visualized. The pancreatic body is unremarkable. No hepatic mass is seen. The visualized portions of the right kidney show no abnormality. IMPRESSION: 1. Status post cholecystectomy. 2. Mild dilatation of the common hepatic duct. 3. No common duct calculus is identified, although the distal common bile duct in the pancreatic head was not clearly visualized sonographically. PE: GEN: NAD HEENT: Atraumatic, PERRL LUNGS: CTAB HEART: RRR ABD: NABS, S/ND, vague periumbilical discomfort EXTREMITY: No edema SKIN: No rashes, no jaundice NEURO/PSYCH: A & O 3 A/P: A/P: Periumbilical/right-sided abd pain, nausea - improved Elevated lipase (resolved), transaminitis -normal pancreas on CT, US w/ dilated CHD -Hepatitis panel pending -08-12 beers weekly NSAID use -significant, 8 ibuprofen daily along w/ Lortab for back pain CRC screen, h/o colon polyps -last colonoscopy reportedly normal ~1 year ago -intermittent loose stools, not a new symptom Normocytic anemia -- Possibly related to alcohol. Await Hepatitis panel. Check MRCP - resume clears, ADAT after. 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 Update: EGD w/ Dr. Jamison 12/27/07: grade 1 reflux esophagitis, bile acid reflux, normal duodenum. Esophageal, gastric, and duodenal biopsies were negative for pathology. KAIT NORTON Jul 12, 2017 08:59
[2017-07-12] MEDS: IV NORMAL SALINE 1000ML BAG 1,000 ML IV SCH (09:05)
[2017-07-12 10:55] VITALS: BP 135/69
[2017-07-12] MEDS: POTASSIUM PHOSPHATE DIBASIC 10 MMOL in IV DEXTROSE 5% 100 ML IV SCH ×2 (11:31→13:49)
[2017-07-12] MEDS: fentaNYL PF VIAL 100 MCG/2 ML VIAL IV PRN ×3 (13:49→22:56)
--- NOTE | 2017-07-12 14:55 | PDOC ---
PROGRESS NOTES Chief Complaint Chief Complaint abd pain, possible 2/2 ETOH related acute pancreatitis, vs. alcohol hepatitis elevated transaminities, 2/2 alcohol likely htn hld intermittent asthma major depression disorder hypokalemia hypophosphatemia right side pleuritic chest pain plan: gi consulted lipase normal now clear liquid diet cont home meds, need verify dvt ppx IVF pain control CT NEG, CHECK US LTD showed mild CBD dilation, MRCP as per GI today REPLete K, jennifer check hepatitis panel, CMV, EBV. History of Present Illness History of Present Illness ROS: no fever, chills, sob or chest pain some right side pleuritic chest pain with deep breath abd pain slightly better at 4/10 Vitals Vitals Vital Signs Date Time Temp Pulse Resp B/P (MAP) Pulse Ox O2 Delivery O2 Flow Rate FiO2 07/12/17 12:54 Room Air 07/12/17 10:55 98.1 78 16 135/69 (91) 94 98.1 Physical Exam General: Alert, Oriented X3, Cooperative Heart: Regular rate, Normal S1, Normal S2 Lungs: Clear Abdomen: Normal bowel sounds, Soft, Other (right side , umbilial area mild tenderness) Extremities: No clubbing, No cyanosis Skin: No rashes Labs LABS Laboratory Tests Test 07/12/17 03:45 07/12/17 08:15 White Blood Count 8.7 x10^3/uL (4.0-11.0) Red Blood Count 3.54 x10^6/uL (3.50-5.40) Hemoglobin 11.4 g/dL (12.0-15.5) Hematocrit 34.1 % (36.0-47.0) Mean Corpuscular Volume 96 fL (79-100) Mean Corpuscular Hemoglobin 32 pg (25-35) Mean Corpuscular Hemoglobin Concent 33 g/dL (31-37) Red Cell Distribution Width 12.8 % (11.5-14.5) Platelet Count 223 x10^3/uL (140-400) Neutrophils (%) (Auto) 78 % (31-73) Lymphocytes (%) (Auto) 11 % (24-48) Monocytes (%) (Auto) 8 % (0-9) Eosinophils (%) (Auto) 3 % (0-3) Basophils (%) (Auto) 0 % (0-3) Neutrophils # (Auto) 6.8 x10^3uL (1.8-7.7) Lymphocytes # (Auto) 0.9 x10^3/uL (1.0-4.8) Monocytes # (Auto) 0.7 x10^3/uL (0.0-1.1) Eosinophils # (Auto) 0.3 x10^3/uL (0.0-0.7) Basophils # (Auto) 0.0 x10^3/uL (0.0-0.2) Sodium Level 144 mmol/L (136-145) Potassium Level 3.1 mmol/L (3.5-5.1) 3.3 mmol/L (3.5-5.1) Chloride Level 109 mmol/L (98-107) Carbon Dioxide Level 27 mmol/L (21-32) Anion Gap 8 (6-14) Blood Urea Nitrogen 6 mg/dL (7-20) Creatinine 0.6 mg/dL (0.6-1.0) Estimated GFR (Cockcroft-Gault) 102.0 Glucose Level 93 mg/dL (70-99) Calcium Level 8.3 mg/dL (8.5-10.1) Total Bilirubin 0.5 mg/dL (0.2-1.0) Direct Bilirubin 0.2 mg/dL (0.0-0.2) Aspartate Amino Transf (AST/SGOT) 254 U/L (15-37) Alanine Aminotransferase (ALT/SGPT) 371 U/L (14-59) Alkaline Phosphatase 201 U/L (46-116) Total Protein 6.1 g/dL (6.4-8.2) Albumin 3.1 g/dL (3.4-5.0) Lipase 102 U/L (73-393) Phosphorus Level 2.3 mg/dL (2.6-4.7) Magnesium Level 1.8 mg/dL (1.8-2.4) Comment Review of Relevant I have reviewed the following items steffanie (where applicable) has been applied. Labs Laboratory Tests Test 07/10/17 18:50 07/10/17 19:28 07/11/17 09:45 07/11/17 13:15 Urine Collection Type Unknown Urine Color Yellow Urine Clarity Clear Urine pH 6.0 Urine Specific [place] 1.015 Urine Protein Negative mg/dL (NEG-TRACE) Urine Glucose (UA) Negative mg/dL (NEG) Urine Ketones (Stick) Negative mg/dL (NEG) Urine Blood Negative (NEG) Urine Nitrite Negative (NEG) Urine Bilirubin Negative (NEG) Urine Urobilinogen Dipstick 0.2 mg/dL (0.2 mg/dL) Urine Leukocyte Esterase Negative (NEG) Urine RBC 1-2 /HPF (0-2) Urine WBC Rare /HPF (0-4) Urine Bacteria 0 /HPF (0-FEW) White Blood Count 12.8 x10^3/uL (4.0-11.0) 8.3 x10^3/uL (4.0-11.0) Red Blood Count 3.65 x10^6/uL (3.50-5.40) 3.65 x10^6/uL (3.50-5.40) Hemoglobin 11.5 g/dL (12.0-15.5) 11.4 g/dL (12.0-15.5) Hematocrit 34.6 % (36.0-47.0) 34.8 % (36.0-47.0) Mean Corpuscular Volume 95 fL (79-100) 95 fL (79-100) Mean Corpuscular Hemoglobin 32 pg (25-35) 31 pg (25-35) Mean Corpuscular Hemoglobin Concent 33 g/dL (31-37) 33 g/dL (31-37) Red Cell Distribution Width 12.7 % (11.5-14.5) 12.8 % (11.5-14.5) Platelet Count 258 x10^3/uL (140-400) 221 x10^3/uL (140-400) Neutrophils (%) (Auto) 85 % (31-73) 81 % (31-73) Lymphocytes (%) (Auto) 8 % (24-48) 10 % (24-48) Monocytes (%) (Auto) 6 % (0-9) 8 % (0-9) Eosinophils (%) (Auto) 1 % (0-3) 2 % (0-3) Basophils (%) (Auto) 0 % (0-3) 0 % (0-3) Neutrophils # (Auto) 10.9 x10^3uL (1.8-7.7) 6.7 x10^3uL (1.8-7.7) Lymphocytes # (Auto) 1.0 x10^3/uL (1.0-4.8) 0.8 x10^3/uL (1.0-4.8) Monocytes # (Auto) 0.8 x10^3/uL (0.0-1.1) 0.6 x10^3/uL (0.0-1.1) Eosinophils # (Auto) 0.1 x10^3/uL (0.0-0.7) 0.1 x10^3/uL (0.0-0.7) Basophils # (Auto) 0.0 x10^3/uL (0.0-0.2) 0.0 x10^3/uL (0.0-0.2) Segmented Neutrophils % 74 % (35-66) Band Neutrophils % 15 % (0-9) Lymphocytes % 6 % (24-48) Monocytes % 4 % (0-10) Eosinophils % 1 % (0-5) Platelet Estimate Adequate (ADEQUATE) Giant Platelets Few Sodium Level 138 mmol/L (136-145) 144 mmol/L (136-145) Potassium Level 3.6 mmol/L (3.5-5.1) 3.3 mmol/L (3.5-5.1) Chloride Level 103 mmol/L (98-107) 109 mmol/L (98-107) Carbon Dioxide Level 23 mmol/L (21-32) 26 mmol/L (21-32) Anion Gap 12 (6-14) 9 (6-14) Blood Urea Nitrogen 19 mg/dL (7-20) 10 mg/dL (7-20) Creatinine 0.6 mg/dL (0.6-1.0) 0.6 mg/dL (0.6-1.0) Estimated GFR (Cockcroft-Gault) 102.0 102.0 Glucose Level 88 mg/dL (70-99) 78 mg/dL (70-99) Lactic Acid Level 1.8 mmol/L (0.4-2.0) Calcium Level 8.4 mg/dL (8.5-10.1) 8.0 mg/dL (8.5-10.1) Total Bilirubin 0.4 mg/dL (0.2-1.0) Direct Bilirubin 0.2 mg/dL (0.0-0.2) Aspartate Amino Transf (AST/SGOT) 434 U/L (15-37) Alanine Aminotransferase (ALT/SGPT) 164 U/L (14-59) Alkaline Phosphatase 136 U/L (46-116) Troponin I Quantitative < 0.017 ng/mL (0.000-0.055) Total Protein 6.6 g/dL (6.4-8.2) Albumin 3.7 g/dL (3.4-5.0) Lipase 820 U/L (73-393) 99 U/L (73-393) Urine Opiates Screen Pos (NEG) Urine Methadone Screen Neg (NEG) Urine Barbiturates Neg (NEG) Urine Phencyclidine Screen Neg (NEG) Urine Amphetamine/Methamphetamine Neg (NEG) Urine Benzodiazepines Screen Neg (NEG) Urine Cocaine Screen Neg (NEG) Urine Cannabinoids Screen Neg (NEG) Urine Ethyl Alcohol Neg (NEG) Test 07/12/17 03:45 07/12/17 08:15 White Blood Count 8.7 x10^3/uL (4.0-11.0) Red Blood Count 3.54 x10^6/uL (3.50-5.40) Hemoglobin 11.4 g/dL (12.0-15.5) Hematocrit 34.1 % (36.0-47.0) Mean Corpuscular Volume 96 fL (79-100) Mean Corpuscular Hemoglobin 32 pg (25-35) Mean Corpuscular Hemoglobin Concent 33 g/dL (31-37) Red Cell Distribution Width 12.8 % (11.5-14.5) Platelet Count 223 x10^3/uL (140-400) Neutrophils (%) (Auto) 78 % (31-73) Lymphocytes (%) (Auto) 11 % (24-48) Monocytes (%) (Auto) 8 % (0-9) Eosinophils (%) (Auto) 3 % (0-3) Basophils (%) (Auto) 0 % (0-3) Neutrophils # (Auto) 6.8 x10^3uL (1.8-7.7) Lymphocytes # (Auto) 0.9 x10^3/uL (1.0-4.8) Monocytes # (Auto) 0.7 x10^3/uL (0.0-1.1) Eosinophils # (Auto) 0.3 x10^3/uL (0.0-0.7) Basophils # (Auto) 0.0 x10^3/uL (0.0-0.2) Sodium Level 144 mmol/L (136-145) Potassium Level 3.1 mmol/L (3.5-5.1) 3.3 mmol/L (3.5-5.1) Chloride Level 109 mmol/L (98-107) Carbon Dioxide Level 27 mmol/L (21-32) Anion Gap 8 (6-14) Blood Urea Nitrogen 6 mg/dL (7-20) Creatinine 0.6 mg/dL (0.6-1.0) Estimated GFR (Cockcroft-Gault) 102.0 Glucose Level 93 mg/dL (70-99) Calcium Level 8.3 mg/dL (8.5-10.1) Total Bilirubin 0.5 mg/dL (0.2-1.0) Direct Bilirubin 0.2 mg/dL (0.0-0.2) Aspartate Amino Transf (AST/SGOT) 254 U/L (15-37) Alanine Aminotransferase (ALT/SGPT) 371 U/L (14-59) Alkaline Phosphatase 201 U/L (46-116) Total Protein 6.1 g/dL (6.4-8.2) Albumin 3.1 g/dL (3.4-5.0) Lipase 102 U/L (73-393) Phosphorus Level 2.3 mg/dL (2.6-4.7) Magnesium Level 1.8 mg/dL (1.8-2.4) Laboratory Tests Test 07/12/17 03:45 07/12/17 08:15 White Blood Count 8.7 x10^3/uL (4.0-11.0) Red Blood Count 3.54 x10^6/uL (3.50-5.40) Hemoglobin 11.4 g/dL (12.0-15.5) Hematocrit 34.1 % (36.0-47.0) Mean Corpuscular Volume 96 fL (79-100) Mean Corpuscular Hemoglobin 32 pg (25-35) Mean Corpuscular Hemoglobin Concent 33 g/dL (31-37) Red Cell Distribution Width 12.8 % (11.5-14.5) Platelet Count 223 x10^3/uL (140-400) Neutrophils (%) (Auto) 78 % (31-73) Lymphocytes (%) (Auto) 11 % (24-48) Monocytes (%) (Auto) 8 % (0-9) Eosinophils (%) (Auto) 3 % (0-3) Basophils (%) (Auto) 0 % (0-3) Neutrophils # (Auto) 6.8 x10^3uL (1.8-7.7) Lymphocytes # (Auto) 0.9 x10^3/uL (1.0-4.8) Monocytes # (Auto) 0.7 x10^3/uL (0.0-1.1) Eosinophils # (Auto) 0.3 x10^3/uL (0.0-0.7) Basophils # (Auto) 0.0 x10^3/uL (0.0-0.2) Sodium Level 144 mmol/L (136-145) Potassium Level 3.1 mmol/L (3.5-5.1) 3.3 mmol/L (3.5-5.1) Chloride Level 109 mmol/L (98-107) Carbon Dioxide Level 27 mmol/L (21-32) Anion Gap 8 (6-14) Blood Urea Nitrogen 6 mg/dL (7-20) Creatinine 0.6 mg/dL (0.6-1.0) Estimated GFR (Cockcroft-Gault) 102.0 Glucose Level 93 mg/dL (70-99) Calcium Level 8.3 mg/dL (8.5-10.1) Total Bilirubin 0.5 mg/dL (0.2-1.0) Direct Bilirubin 0.2 mg/dL (0.0-0.2) Aspartate Amino Transf (AST/SGOT) 254 U/L (15-37) Alanine Aminotransferase (ALT/SGPT) 371 U/L (14-59) Alkaline Phosphatase 201 U/L (46-116) Total Protein 6.1 g/dL (6.4-8.2) Albumin 3.1 g/dL (3.4-5.0) Lipase 102 U/L (73-393) Phosphorus Level 2.3 mg/dL (2.6-4.7) Magnesium Level 1.8 mg/dL (1.8-2.4) Medications Current Medications Hydromorphone HCl (Dilaudid) 0.5 mg PRN Q15MIN PRN IV/SQ PAIN GREATER THAN 3/ 10 Last administered on 07/10/17 21:20; Start 07/10/17 at 19:15; Stop at 19:14; Status DC Sodium Chloride 1,000 ml @ 1,000 mls/hr Q1H IV Last administered on 19:45; Start 07/10/17 at 19:12; Stop 07/10/17 at 20:11; Status DC Ondansetron HCl (Zofran) 4 mg 1X ONCE IV Last administered on 07/10/17 19:45 ; Start 07/10/17 at 19:15; Stop 07/10/17 at 19:16; Status DC Iohexol (Omnipaque 300 Mg/ml) 75 ml 1X ONCE IV Last administered on 20:22; Start 07/10/17 at 20:15; Stop 07/10/17 at 20:16; Status DC Info (Do NOT chart on this entry -- for MONITORING) 1 each PRN DAILY PRN MC SEE COMMENTS; Start 07/10/17 at 20:15; Stop 07/12/17 at 20:14 Ondansetron HCl (Zofran) 4 mg PRN Q8HRS PRN IV NAUSEA/VOMITING Last administered on 07/11/17 04:25; Start 07/10/17 at 21:00; Stop 07/11/17 at 16 :56; Status DC Morphine Sulfate 2 mg PRN Q2HR PRN IV SEVERE PAIN Last administered on 09:52; Start 07/10/17 at 21:00; Stop 07/11/17 at 16:56; Status DC Sodium Chloride 1,000 ml @ 100 mls/hr Q10H IV Last administered on 07/11/17 07:33; Start 07/10/17 at 20:55; Stop 07/11/17 at 16:55; Status DC Acetaminophen (Tylenol) 650 mg PRN Q6HRS PRN PO FEVER; Start 07/11/17 at 09:15 Ondansetron HCl (Zofran) 4 mg PRN Q6HRS PRN IV NAUSEA/VOMITING; Start at 09:15 Morphine Sulfate 2 mg PRN Q2HR PRN IV PAIN; Start 07/11/17 at 09:15 Tramadol HCl (Ultram) 50 mg PRN Q6HRS PRN PO PAIN Last administered on 00:22; Start 07/11/17 at 09:15 Hydralazine HCl (Apresoline Inj) 10 mg PRN Q4HRS PRN IVP ELEVATED BP, SEE COMMENTS; Start 07/11/17 at 09:15 Docusate Sodium (Colace) 100 mg PRN DAILY PRN PO CONSTIPATION; Start 07/11/17 at 09:15 Potassium Chloride (Klor-Con) 40 meq 1X ONCE PO Last administered on 12:24; Start 07/11/17 at 11:30; Stop 07/11/17 at 11:31; Status DC Cetirizine HCl (ZyrTEC) 10 mg DAILY PO Last administered on 07/12/17 08:56; Start 07/11/17 at 15:00 Methylprednisolone Sodium Succinate (SOLU-Medrol 125MG VIAL) 80 mg Q8HRS IV ; Start 07/11/17 at 14:00; Stop 07/11/17 at 14:22; Status DC Acetaminophen/ Hydrocodone Bitart (Lortab 7.5/325) 1 tab PRN Q6HRS PRN PO PAIN Last administered on 07/12/17 08:55; Start 07/11/17 at 14:00 Losartan Potassium (Cozaar) 100 mg DAILY PO Last administered on 07/12/17 08: 56; Start 07/11/17 at 15:00 Sertraline HCl (Zoloft) 100 mg DAILY PO Last administered on 07/12/17 08:59; Start 07/11/17 at 15:00 Bupropion HCl (Wellbutrin Sr) 150 mg DAILY PO Last administered on 07/12/17 08:56; Start 07/11/17 at 15:00 Montelukast Sodium (Singulair) 10 mg DAILY PO Last administered on 07/12/17 08:56; Start 07/11/17 at 15:00 Non-Formulary Medication 1 ea BID INH ; Start 07/11/17 at 21:00; Status UNV Gabapentin (Neurontin) 100 mg HS PO Last administered on 07/11/17 21:22; Start 07/11/17 at 21:00 Amlodipine Besylate (Norvasc) 5 mg DAILY PO Last administered on 07/12/17 08: 56; Start 07/11/17 at 15:00 Atorvastatin Calcium (Lipitor) 20 mg Q48H PO Last administered on 07/11/17 21 :22; Start 07/11/17 at 21:00 Sodium Chloride 1,000 ml @ 100 mls/hr Q10H IV Last administered on 07/12/17 09:05; Start 07/11/17 at 14:15 Enoxaparin Sodium (Lovenox 40mg Syringe) 40 mg Q24H SQ Last administered on 15:19; Start 07/11/17 at 15:00 Hydrochlorothiazide (Hydrodiuril) 25 mg DAILY PO Last administered on 08:55; Start 07/11/17 at 15:00 Albuterol Sulfate (Ventolin Neb Soln) 2.5 mg RTQID NEB Last administered on 12:54; Start 07/11/17 at 16:00 Budesonide (Pulmicort) 0.5 mg RTBID NEB Last administered on 07/12/17 08:09; Start 07/11/17 at 20:00 Famotidine (Pepcid) 20 mg QHS PO ; Start 07/12/17 at 21:00 Fentanyl Citrate (Fentanyl 2ml Vial) 50 mcg PRN Q2HR PRN IV PAIN Last administered on 07/12/17 13:49; Start 07/12/17 at 10:15 Potassium Phosphate 10 mmol/ Dextrose 103.3333 ml @ 51.667 m... Q2H IV Last administered on 07/12/17 13:49; Start 07/12/17 at 11:00; Stop 07/12/17 at 14 :59 Vitals/I & O Vital Sign - Last 24 Hours 07/11/17 07/11/17 07/11/17 07/11/17 15:00 15:18 15:19 16:16 Temp 98.5 98.5 Pulse 63 76 76 Resp 18 B/P (MAP) 142/72 (95) 117/76 117/76 Pulse Ox 94 98 O2 Delivery Room Air Room Air 07/11/17 07/11/17 07/11/17 11/13/17 16:49 19:15 20:20 21:22 Temp 98.8 98.8 Pulse 80 Resp 16 14 20 B/P (MAP) 143/79 (100) Pulse Ox 96 96 O2 Delivery Room Air Room Air Room Air Room Air 07/11/17 07/11/17 07/12/17 07/12/17 22:22 23:27 00:22 01:25 Temp 98.5 98.5 Pulse 68 Resp 20 16 20 20 B/P (MAP) 146/76 (99) Pulse Ox 96 95 95 95 O2 Delivery Room Air Room Air Room Air Room Air 07/12/17 07/12/17 07/12/17 07/12/17 02:48 07:00 08:11 08:56 Temp 98.3 97.9 98.3 97.9 Pulse 69 66 66 Resp 18 16 B/P (MAP) 160/76 (104) 138/82 (100) 138/82 Pulse Ox 98 96 98 O2 Delivery Room Air Room Air Room Air 07/12/17 07/12/17 07/12/17 08:56 10:55 12:54 Temp 98.1 98.1 Pulse 66 78 Resp 16 B/P (MAP) 138/82 135/69 (91) Pulse Ox 94 O2 Delivery Room Air Room Air Intake and Output 07/11/17 07/11/17 07/12/17 15:00 23:00 07:00 Intake Total 480 ml 1238 ml Output Total 1600 ml 1450 ml Balance -1120 ml -212 ml ANNETTE ASTORGA MD Jul 12, 2017 14:55
[2017-07-12 15:00] VITALS: BP 131/77
[2017-07-12] MEDS: ENOXAPARIN 40 MG/0.4 ML SYRINGE. SQ SCH (15:00)
[2017-07-12 19:00] VITALS: BP 150/74
[2017-07-12] MEDS ORDERED: ALBUTEROL SULFATE 2.5 MG/3 ML NEBU. NEB PRN (20:15)
[2017-07-12] MEDS: GABAPENTIN 100 MG CAPSULE. PO SCH (20:23)
[2017-07-12] MEDS ORDERED: FAMOTIDINE 20 MG TABLET. PO SCH (21:00)
[2017-07-12 23:00] VITALS: BP 131/76
[2017-07-13] MEDS: HYDROcodone/APAP 7.5/325MG 1 TAB TABLET PO PRN ×2 (01:03→08:52)
[2017-07-13 03:00] VITALS: BP 158/85
[2017-07-13] MEDS: IV NORMAL SALINE 1000ML BAG 1,000 ML IV SCH ×2 (03:09→09:00)
[2017-07-13 04:48] LABS: BASO % 0 % (0-3); EOS % 4 % (0-3); HEMATOCRIT 35.2 % (36.0-47.0); HEMOGLOBIN 11.8 g/dL (12.0-15.5); LYMPH # 1.1 x10^3/uL (1.0-4.8); LYMPH % 15 % (24-48); MEAN CORPUSCULAR HEMOGLOBIN 32 pg (25-35); MEAN CORPUSCULAR HGB CONC 34 g/dL (31-37); MEAN CORPUSCULAR VOLUME 95 fL (79-100); MONO % 8 % (0-9); NEUT % 74 % (31-73); PLATELET COUNT 230 x10^3/uL (140-400); RED BLOOD COUNT 3.71 x10^6/uL (3.50-5.40); RED CELL DISTRIBUTION WIDTH 12.8 % (11.5-14.5); WHITE BLOOD COUNT 7.4 x10^3/uL (4.0-11.0)
[2017-07-13 05:04] LABS: ALBUMIN 3.4 g/dL (3.4-5.0); CALCIUM 9.1 mg/dL (8.5-10.1); CREATININE 0.7 mg/dL (0.6-1.0); DIRECT BILIRUBIN 0.1 mg/dL (0.0-0.2); GFR 85.4; MAGNESIUM 1.7 mg/dL (1.8-2.4); PHOSPHORUS 3.7 mg/dL (2.6-4.7); POTASSIUM 3.3 mmol/L (3.5-5.1); TOTAL BILIRUBIN 0.4 mg/dL (0.2-1.0); TOTAL PROTEIN 6.7 g/dL (6.4-8.2)
[2017-07-13 07:00] VITALS: BP 157/84
[2017-07-13] MEDS: BUDESONIDE 0.5 MG/2 ML NEBU. NEB SCH (07:19)
[2017-07-13] MEDS ORDERED: POTASSIUM CHLORIDE 20 MEQ TABLET.ER. PO ONE (08:15)
--- NOTE | 2017-07-13 08:26 | RAD ---
MRCP without contrast 07/12/2017 Clinical indication: Elevated LFTs, right-sided abdominal pain, prior cholecystectomy. Comparison: CT abdomen and pelvis 07/10/2017 Technique: Multisequence multiplanar MR imaging was obtained of the abdomen utilizing MRCP protocol. Findings: Heart size is normal. Visualized lung bases are clear. The liver is normal in size and morphology. There is a subcentimeter cyst at the dome of hepatic segment 7. There is signal void in the gallbladder fossa compatible with prior cholecystectomy. There is mild central intra and extrahepatic biliary ductal dilatation with the common bile duct measuring 0.9 cm series 8/image 21. No intra or extrahepatic bile duct focal filling defect or abrupt caliber change. Unenhanced spleen, adrenal glands pancreas and kidneys are unremarkable apart from bilateral renal sinus cysts and an exophytic 1.4 cm cyst from the inferior pole the left kidney. Visualized small and large bowel loops are normal in caliber without obstruction. No abdominal free fluid. Impression: Prior cholecystectomy with mild central intra and extrahepatic biliary ductal dilatation without evidence for choledocholithiasis or stricture.
[2017-07-13] MEDS ORDERED: MAGNESIUM SULFATE 2GM 50 ML IV ONE (08:30)
[2017-07-13] MEDS: buPROPion SR 150 MG TABLET.SA PO SCH (08:51)
[2017-07-13] MEDS: LOSARTAN POTASSIUM 50 MG TABLET. PO SCH (08:51)
[2017-07-13] MEDS: MONTELUKAST SODIUM 10 MG TABLET. PO SCH (08:51)
[2017-07-13] MEDS: SERTRALINE 50 MG TABLET. PO SCH (08:51)
[2017-07-13] MEDS: hydroCHLOROthiazide 25 MG TABLET PO SCH (08:52)
[2017-07-13] MEDS: CETIRIZINE HCL 10 MG TABLET. PO SCH (08:52)
[2017-07-13] MEDS: amLODIPine BESYLATE 5 MG TABLET PO SCH (08:56)
[2017-07-13 11:00] VITALS: BP 131/70
--- NOTE | 2017-07-13 12:57 | PDOC3 ---
Discharge Summary [facility] Date of Admission: Jul 10, 2017 Discharge Date: Jul 13, 2017 Admitting Diagnosis abd pain, possible 2/2 ETOH related acute pancreatitis, vs. alcohol hepatitis elevated transaminities, 2/2 alcohol likely htn hld intermittent asthma major depression disorder hypokalemia hypophosphatemia right side pleuritic chest pain Problems: CONSULTS [facility] Brief Hospital Course HPI 62-year-old female presenting the emergency department for abd pain x2days. pt said she started to have Rt side abd pain last night, with nausea, no vomiting, the pain felt like sharp, 8/10, constant. She ate outside for lunch. 1 time loose BM, not melena. denies gi problems before, never got EGD, got colonoscopy before was neg. denies fever, chills, cough, sob. had cholecystectomy. CT neg in ER, lipase 800. admit drinking ETOH, but denies heavy drinker. did drink 2-3 beers last night. ABD US showed mild dilated CBD. MRCP showed mild dilated intra and extra BD, no stone or stricture. LFT better daily. other hepatitis panel pending. right side abd pain better, then today has some epigastric pain. lipase normal from 2nd day. likely 2/2 alcohol or had a small Stone passed. GI consulted, no intervention. dc home dc time 35min General: Alert, Oriented X3, Cooperative Heart: Regular rate, Normal S1, Normal S2 Lungs: Clear Abdomen: Normal bowel sounds, Soft, Other (right side , umbilial area mild tenderness) Extremities: No clubbing, No cyanosis Skin: No rashes Problems: Disposition home CONDITION AT DISCHARGE: Improved Diet gi soft No Active Prescriptions or Reported Meds Follow Up [facility] in 2 weeks ANNETTE ASTORGA MD Jul 13, 2017 12:57
--- NOTE | 2017-07-13 13:46 | PDOC ---
Subjective: Subjective: Seen prior to DC. Less pain, tolerating PO w/o worsening pain or n/v. Ready to go home. Objective: Objective: D/w RN twice today - pt requested to advance diet and DC. Vital Signs: Vital Signs Date Time Temp Pulse Resp B/P (MAP) Pulse Ox O2 Delivery O2 Flow Rate FiO2 07/13/17 11:00 98.1 78 16 131/70 (90) 96 Room Air 98.1 Labs: Laboratory Tests Test 07/13/17 03:58 White Blood Count 7.4 x10^3/uL Red Blood Count 3.71 x10^6/uL Hemoglobin 11.8 g/dL Hematocrit 35.2 % Mean Corpuscular Volume 95 fL Mean Corpuscular Hemoglobin 32 pg Mean Corpuscular Hemoglobin Concent 34 g/dL Red Cell Distribution Width 12.8 % Platelet Count 230 x10^3/uL Neutrophils (%) (Auto) 74 % Lymphocytes (%) (Auto) 15 % Monocytes (%) (Auto) 8 % Eosinophils (%) (Auto) 4 % Basophils (%) (Auto) 0 % Neutrophils # (Auto) 5.5 x10^3uL Lymphocytes # (Auto) 1.1 x10^3/uL Monocytes # (Auto) 0.6 x10^3/uL Eosinophils # (Auto) 0.3 x10^3/uL Basophils # (Auto) 0.0 x10^3/uL Sodium Level 143 mmol/L Potassium Level 3.3 mmol/L Chloride Level 108 mmol/L Carbon Dioxide Level 27 mmol/L Anion Gap 8 Blood Urea Nitrogen 7 mg/dL Creatinine 0.7 mg/dL Estimated GFR (Cockcroft-Gault) 85.4 Glucose Level 97 mg/dL Calcium Level 9.1 mg/dL Phosphorus Level 3.7 mg/dL Magnesium Level 1.7 mg/dL Total Bilirubin 0.4 mg/dL Direct Bilirubin 0.1 mg/dL Aspartate Amino Transf (AST/SGOT) 100 U/L Alanine Aminotransferase (ALT/SGPT) 268 U/L Alkaline Phosphatase 179 U/L Total Protein 6.7 g/dL Albumin 3.4 g/dL Imaging: MRCP Impression: Prior cholecystectomy with mild central intra and extrahepatic biliary ductal dilatation without evidence for choledocholithiasis or stricture. PE: GEN: NAD, sitting on edge of bed NEURO/PSYCH: A & O 3 A/P: Right periumbilical pain, nausea - improved Elevated lipase (resolved), transaminitis (improved) -normal pancreas on CT, US w/ dilated CHD, MRCP as above -Hepatitis panel pending -08-12 beers weekly NSAID use -significant, 8 ibuprofen daily -started PPI yesterday -EGD 2007: grade 1 reflux esophagitis, bile acid reflux, normal duodenum. Esophageal, gastric, and duodenal biopsies were negative for pathology. -- DC per primary, follow-up for Hep panel results. 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 KAIT NORTON Jul 13, 2017 13:46
[2017-07-20 06:12] LABS: HEP A IGM ABDY Negative (Negative)
[2017-08-10] MEDS ORDERED: PANT20TA2 PO (06:51)
[2017-08-10] MEDS ORDERED: MONT10TA9 PO (06:52)
[2017-08-10] MEDS ORDERED: IRBE1TAB5 PO (06:52)
[2017-08-10] MEDS ORDERED: FLUT1DIS5 IH (06:52)
[2017-08-10] MEDS ORDERED: CRESTOR10 MG PO (06:52)
[2017-08-10] MEDS ORDERED: IBUP-1027 PO (06:52)
[2017-08-10] MEDS ORDERED: HYDR-2762 PO (06:52)
[2017-08-10] MEDS ORDERED: BUPR150T15 PO (06:52)
[2017-08-10] MEDS ORDERED: AMLO10TA2 PO (06:52)
[2017-08-10] MEDS ORDERED: SERT25TA PO (06:52)
== END 2017-07-13 13:41 | disposition home or self-care (01) | DRG 440 ==
LOC: ER 18:02 → 4 NORTH 20:55
PROVIDERS: ADMIT Internal Medicine; ATTEND Internal Medicine
DX: K85.90 Acute pancreatitis without necrosis or infection, unspecified (principal); E83.39 Other disorders of phosphorus metabolism; E78.00 Pure hypercholesterolemia, unspecified; K83.8 Other specified diseases of biliary tract; E78.5 Hyperlipidemia, unspecified; E87.6 Hypokalemia; F32.9 Major depressive disorder, single episode, unspecified; G89.29 Other chronic pain; I10 Essential (primary) hypertension; J45.20 Mild intermittent asthma, uncomplicated; K21.0 Gastro-esophageal reflux disease with esophagitis; K63.5 Polyp of colon; Z82.49 Family history of ischemic heart disease and other diseases of the circulatory system; Z90.49 Acquired absence of other specified parts of digestive tract; Z96.659 Presence of unspecified artificial knee joint
CPT/HCPCS: 36415; 74177; 74181; 76705; 80048; 80074; 80076; 80307; 81001; 83605; 83690; 83735; 84100; 84132; 84484; 85007; 85025; 86644; 86645; 86663; 86664; 93005; 94250; 94640; 94760; 96361; 96374; J1170; J1650; J2270; J2405; J3010; J7030; J7060; J7613; J7626; Q9967; 99285-25; G0479

== ENCOUNTER → 2017-08-10 | Day surgery (SDC) | payer BC ==
[~2017-08-10] MED LIST: PROPOFOL 20 ML IV
[2017-08-10] MEDS: IV RINGERS,LACTATED 1000ML 1,000 ML IV (06:54)
== END | disposition home or self-care (01) ==
LOC: ENDOS 06:15
DX: K29.50 Unspecified chronic gastritis without bleeding (principal); K25.9 Gastric ulcer, unspecified as acute or chronic, without hemorrhage or perforation; E78.00 Pure hypercholesterolemia, unspecified; I10 Essential (primary) hypertension; J45.909 Unspecified asthma, uncomplicated; F32.9 Major depressive disorder, single episode, unspecified; F17.200 Nicotine dependence, unspecified, uncomplicated; Z90.49 Acquired absence of other specified parts of digestive tract; Z88.6 Allergy status to analgesic agent; Z91.040 Latex allergy status; Z91.048 Other nonmedicinal substance allergy status
CPT/HCPCS: 43239; 88305; 88342; J2704

== ENCOUNTER → 2017-11-18 | Outpatient (CLI) | payer BC ==
[2017-11-18 13:40] LABS: ADD MAN DIFF? NO
[2017-11-18 13:42] LABS: BASO % 0 % (0-3); EOS # 0.1 x10^3/uL (0.0-0.7); EOS % 1 % (0-3); HEMATOCRIT 37.4 % (36.0-47.0); HEMOGLOBIN 12.4 g/dL (12.0-15.5); LYMPH # 1.3 x10^3/uL (1.0-4.8); LYMPH % 14 % (24-48); MEAN CORPUSCULAR HEMOGLOBIN 30 pg (25-35); MEAN CORPUSCULAR HGB CONC 33 g/dL (31-37); MEAN CORPUSCULAR VOLUME 90 fL (79-100); MONO # 0.6 x10^3/uL (0.0-1.1); MONO % 6 % (0-9); NEUT # 7.5 x10^3uL (1.8-7.7); NEUT % 79 % (31-73); PLATELET COUNT 286 x10^3/uL (140-400); RED BLOOD COUNT 4.18 x10^6/uL (3.50-5.40); RED CELL DISTRIBUTION WIDTH 13.6 % (11.5-14.5); WHITE BLOOD COUNT 9.5 x10^3/uL (4.0-11.0)
[2017-11-18 13:59] LABS: ALBUMIN 4.1 g/dL (3.4-5.0); ALBUMIN/GLOBULIN RATIO 1.2 (1.0-1.7); ALK PHOS 111 U/L (46-116); ALT (SGPT) 30 U/L (14-59); ANION GAP 9 (6-14); AST (SGOT) 22 U/L (15-37); BLOOD UREA NITROGEN 17 mg/dL (7-20); BUN/CREATININE RATIO 24 (6-20); CALCIUM 9.2 mg/dL (8.5-10.1); CARBON DIOXIDE 28 mmol/L (21-32); CHLORIDE 105 mmol/L (98-107); CREATININE 0.7 mg/dL (0.6-1.0); GFR 85.4; GLUCOSE 94 mg/dL (70-99); POTASSIUM 3.6 mmol/L (3.5-5.1); SODIUM 142 mmol/L (136-145); TOTAL BILIRUBIN 0.5 mg/dL (0.2-1.0); TOTAL PROTEIN 7.6 g/dL (6.4-8.2)
[2017-11-18 15:36] LABS: BILIRUBIN,URINE NEGATIVE (NEG); CLARITY,URINE CLEAR; COLOR,URINE YELLOW; GLUCOSE,URINE NEGATIVE (NEG); PH,URINE 6.5; PROTEIN,URINE NEGATIVE (NEG-TRACE); UROBILINOGEN,URINE 0.2 mg/dL (0.2 mg/dL)
[2017-11-18 15:37] LABS: BACTERIA,URINE 0 /HPF (0-FEW); NITRITE,URINE NEGATIVE (NEG); RBC,URINE 0 /HPF (0-2); SQUAMOUS EPITHELIAL CELL,UR OCC /LPF; WBC,URINE 0 /HPF (0-4)
== END | disposition home or self-care (01) ==
LOC: SURGPAT 12:35
DX: Z01.818 Encounter for other preprocedural examination (principal); M46.04 Spinal enthesopathy, thoracic region
CPT/HCPCS: 36415; 71046; 80053; 81001; 85025

== ENCOUNTER 2017-11-23 06:10 | Observation (INO) | payer BC ==
[~2017-11-23 06:10] MED LIST changes: +ESTROGENS, CONJ VAGINAL CREAM 30GM TUBE.; +METHYLENE BLUE 1% 10 ML VIAL.; -PROPOFOL 20 ML IV
[2017-11-23] MEDS: IV RINGERS,LACTATED 1000ML 1,000 ML IV (06:52)
[2017-11-23] MEDS ORDERED: fentaNYL PF VIAL 100 MCG/2 ML VIAL IV (07:00)
[2017-11-23] MEDS ORDERED: ONDANSETRON PF 4 MG/2 ML VIAL. IV ×2 (07:00→10:15)
[2017-11-23] MEDS ORDERED: LIDOCAINE 1% PF 2 ML VIAL. ID (07:00)
[2017-11-23] MEDS ORDERED: PROPOFOL 20 ML IV (07:03)
[2017-11-23] MEDS ORDERED: ROCURONIUM 50 MG/5 ML VIAL. (07:04)
[2017-11-23] MEDS ORDERED: SUCCINYLCHOLINE 200 MG/10 ML VIAL. (07:04)
[2017-11-23] MEDS ORDERED: fentaNYL PF VIAL 100 MCG/2 ML VIAL ×2 (07:04→08:47)
[2017-11-23] MEDS ORDERED: ONDANSETRON PF 4 MG/2 ML VIAL. (07:57)
[2017-11-23] MEDS ORDERED: GLYCOPYRROLATE 1 MG/5 ML VIAL. (07:58)
[2017-11-23] MEDS ORDERED: NEOSTIGMINE 10 MG/10 ML VIAL. (07:58)
[2017-11-23] MEDS: BUPIVACAINE-EPI 0.25%-1:200000 50 ML VIAL. (07:59)
[2017-11-23] MEDS ORDERED: DESFLURANE 61 TO 120 MINUTES IH (08:12)
[2017-11-23] MEDS ORDERED: DEXAMETHASONE SOD PHOS 20 MG/5 ML VIAL. (08:12)
[2017-11-23] MEDS: fentaNYL PF VIAL 100 MCG/2 ML VIAL IV ×4 (10:01→11:21)
[2017-11-23] MEDS: PROCHLORPERAZINE 10 MG/2 ML VIAL. IV (10:02)
[2017-11-23] MEDS ORDERED: LACTULOSE 20 GM/30 ML SOLUTION. PO (10:15)
[2017-11-23] MEDS ORDERED: MAGNESIUM HYDROXIDE 2,400 MG/30 ML ORAL.SUSP. PO (10:15)
[2017-11-23] MEDS ORDERED: MORPHINE SULFATE 4 MG/ML DISP.SYRIN. IV (10:15)
[2017-11-23] MEDS ORDERED: SIMETHICONE 80 MG TAB.CHEW PO (10:15)
[2017-11-23] MEDS ORDERED: 0.9 % SODIUM CHLORIDE 10 ML DISP.SYRIN. IV (10:15)
[2017-11-23] MEDS ORDERED: NALOXONE 0.4 MG/ML VIAL. IV (10:15)
[2017-11-23] MEDS ORDERED: MAG HYDROX/ALUMINUM HYD/SIMETH 30 ML ORAL.SUSP PO (10:15)
[2017-11-23] MEDS ORDERED: diphenhydrAMINE HCL 25 MG CAPSULE PO (10:15)
[2017-11-23] MEDS ORDERED: oxyCODONE/APAP 5/325 1 TAB TABLET PO (10:15)
[2017-11-23] MEDS ORDERED: ZOLPIDEM 5 MG TABLET. PO (10:15)
[2017-11-23] MEDS ORDERED: diphenhydrAMINE 50 MG/ML VIAL IV (10:15)
[2017-11-23] MEDS: MORPHINE SULFATE 4 MG/ML DISP.SYRIN. IV ×4 (10:22→11:15)
[2017-11-23] MEDS: HYDROmorphone 2 MG/ML VIAL IV ×4 (10:31→11:31)
[2017-11-23] MEDS: ALBUTEROL SULFATE 2.5 MG/3 ML NEBU. NEB ×2 (14:48→15:35)
[2017-11-23] MEDS: HYDROcodone/APAP 5/325MG 1 TAB TABLET PO ×2 (17:16→21:25)
[2017-11-23] MEDS ORDERED: BUDESONIDE 0.5 MG/2 ML NEBU. NEB (20:00)
[2017-11-23] MEDS: GABAPENTIN 100 MG CAPSULE. PO (21:25)
[2017-11-23] MEDS: MONTELUKAST SODIUM 10 MG TABLET. PO (21:35)
[2017-11-24] MEDS: HYDROcodone/APAP 5/325MG 1 TAB TABLET PO ×2 (06:00→09:58)
[2017-11-24 06:26] LABS: HEMATOCRIT 34.6 % (36.0-47.0)
[2017-11-24 06:33] LABS: ANION GAP 8 (6-14); BLOOD UREA NITROGEN 15 mg/dL (7-20); CALCIUM 8.6 mg/dL (8.5-10.1); CARBON DIOXIDE 30 mmol/L (21-32); CHLORIDE 107 mmol/L (98-107); CREATININE 0.8 mg/dL (0.6-1.0); GFR 73.2; GLUCOSE 105 mg/dL (70-99); POTASSIUM 4.2 mmol/L (3.5-5.1); SODIUM 145 mmol/L (136-145)
[2017-11-24] MEDS: BUDESONIDE 0.5 MG/2 ML NEBU. NEB (07:53)
[2017-11-24] MEDS: PANTOPRAZOLE 40 MG TABLET.DR. PO (08:05)
[2017-11-24] MEDS: amLODIPine BESYLATE 10 MG TABLET PO (08:45)
[2017-11-24] MEDS: CALCIUM CARBONATE 500 MG TAB.CHEW PO (08:48)
[2017-11-24] MEDS: buPROPion XL 150 MG TAB.ER.24H. PO (08:49)
[2017-11-24] MEDS: CETIRIZINE HCL 10 MG TABLET. PO (08:50)
[2017-11-24] MEDS: SERTRALINE 25 MG TABLET. PO (08:54)
== END 2017-11-24 10:00 | disposition home or self-care (01) ==
LOC: SURG 06:10 → 3 NORTH 10:16
DX: D25.9 Leiomyoma of uterus, unspecified (principal); K66.0 Peritoneal adhesions (postprocedural) (postinfection); N95.0 Postmenopausal bleeding
CPT/HCPCS: 36415; 80048; 85014; 86850; 86900; 86901; 88307; 94640; 94760; G0378; G0379; J0330; J0690; J0780; J1100; J1170; J2270; J2405; J2704; J2710; J3010; J3490; J7626; Q9968

== ENCOUNTER → 2017-12-23 | Day surgery (SDC) | payer BC ==
[~2017-12-23] MED LIST changes: -ESTROGENS, CONJ VAGINAL CREAM 30GM TUBE.; +IV RINGERS,LACTATED 1000ML 1,000 ML IV; +LIDOCAINE 2% PF Vial for OR 5 ML VIAL.; -METHYLENE BLUE 1% 10 ML VIAL.; +PROPOFOL 20 ML IV
== END ==
LOC: ENDOS 08:59
DX: K29.50 Unspecified chronic gastritis without bleeding (principal); I10 Essential (primary) hypertension; E78.5 Hyperlipidemia, unspecified; J45.909 Unspecified asthma, uncomplicated; F32.9 Major depressive disorder, single episode, unspecified; Z87.19 Personal history of other diseases of the digestive system; Z90.49 Acquired absence of other specified parts of digestive tract; Z87.891 Personal history of nicotine dependence; Z88.8 Allergy status to other drugs, medicaments and biological substances
CPT/HCPCS: 43235; J2704

== ENCOUNTER → 2018-10-09 | Outpatient (CLI) | payer BC ==
[2017-12-23 10:43] VITALS: BP 146/77
[~2018-10-09] MED LIST changes: +ACET325T9 PO; +AMLO10TA8 PO; +BUPR150T15 PO; +CRESTOR10 MG PO; +FEXO180T81 PO; +FLUT1DIS5 IH; +GABA300C18 PO; +HYDR-2765 PO; +IBUP-1027 PO; +IRBE1TAB3 PO; +IRBE1TAB5 PO; -IV RINGERS,LACTATED 1000ML 1,000 ML IV; -LIDOCAINE 2% PF Vial for OR 5 ML VIAL.; +MONT10TA49 PO; +PANT20TA2 PO; -PROPOFOL 20 ML IV; +RED RICE YEAST; +SALI10002 MM; +SERT25TA PO
== END | disposition home or self-care (01) ==
LOC: PMGWOUND 12:31
PROVIDERS: ATTEND Emergency Medicine Undersea and Hyperbaric Medicine
DX: L89.893 Pressure ulcer of other site, stage 3 (principal); J45.909 Unspecified asthma, uncomplicated; E78.00 Pure hypercholesterolemia, unspecified; I10 Essential (primary) hypertension; F32.9 Major depressive disorder, single episode, unspecified; E78.5 Hyperlipidemia, unspecified; Z87.891 Personal history of nicotine dependence; Z90.49 Acquired absence of other specified parts of digestive tract; Z88.8 Allergy status to other drugs, medicaments and biological substances
CPT/HCPCS: G0463

== ENCOUNTER → 2018-10-16 | Outpatient (CLI) | payer BC ==
[2017-12-23 10:43] VITALS: BP 146/77
[~2018-10-16] MED LIST changes: -MONT10TA49 PO; +MONT10TA9 PO
== END | disposition home or self-care (01) ==
LOC: PMGWOUND 12:16
PROVIDERS: ATTEND Emergency Medicine Undersea and Hyperbaric Medicine
DX: L89.893 Pressure ulcer of other site, stage 3 (principal); L97.521 Non-pressure chronic ulcer of other part of left foot limited to breakdown of skin; E78.5 Hyperlipidemia, unspecified; I10 Essential (primary) hypertension; J45.909 Unspecified asthma, uncomplicated; E78.00 Pure hypercholesterolemia, unspecified; F32.9 Major depressive disorder, single episode, unspecified; Z87.891 Personal history of nicotine dependence; Z90.49 Acquired absence of other specified parts of digestive tract
CPT/HCPCS: 93923

== ENCOUNTER → 2018-11-23 | Outpatient (CLI) | payer BC ==
[2017-12-23 10:43] VITALS: BP 146/77
== END | disposition home or self-care (01) ==
LOC: PMGWOUND 08:30
PROVIDERS: ATTEND Emergency Medicine Undersea and Hyperbaric Medicine
DX: L89.893 Pressure ulcer of other site, stage 3 (principal); L97.521 Non-pressure chronic ulcer of other part of left foot limited to breakdown of skin; I10 Essential (primary) hypertension; E78.5 Hyperlipidemia, unspecified; J45.909 Unspecified asthma, uncomplicated; E78.00 Pure hypercholesterolemia, unspecified; F32.9 Major depressive disorder, single episode, unspecified; Z87.891 Personal history of nicotine dependence; Z90.49 Acquired absence of other specified parts of digestive tract; Z88.8 Allergy status to other drugs, medicaments and biological substances
CPT/HCPCS: 97597

== ENCOUNTER → 2018-12-08 | Outpatient (CLI) | payer BC ==
[2017-12-23 10:43] VITALS: BP 146/77
[2018-12-08 09:31] LABS: BASO % 0 % (0-3); EOS # 0.1 x10^3/uL (0.0-0.7); EOS % 2 % (0-3); HEMATOCRIT 37.8 % (36.0-47.0); HEMOGLOBIN 12.4 g/dL (12.0-15.5); LYMPH # 0.9 x10^3/uL (1.0-4.8); LYMPH % 12 % (24-48); MEAN CORPUSCULAR HEMOGLOBIN 30 pg (25-35); MEAN CORPUSCULAR HGB CONC 33 g/dL (31-37); MEAN CORPUSCULAR VOLUME 91 fL (79-100); MONO # 0.5 x10^3/uL (0.0-1.1); MONO % 7 % (0-9); NEUT # 6.2 x10^3uL (1.8-7.7); NEUT % 79 % (31-73); PLATELET COUNT 271 x10^3/uL (140-400); RED BLOOD COUNT 4.15 x10^6/uL (3.50-5.40); RED CELL DISTRIBUTION WIDTH 13.2 % (11.5-14.5); WHITE BLOOD COUNT 7.8 x10^3/uL (4.0-11.0)
[2018-12-08 10:05] LABS: ALBUMIN/GLOBULIN RATIO 1.3 (1.0-1.7); C-REACTIVE PROTEIN 0.7 mg/L (0-3.3); CALCIUM 8.8 mg/dL (8.5-10.1); CREATININE 0.8 mg/dL (0.6-1.0); GFR 72.9; POTASSIUM 4.1 mmol/L (3.5-5.1); TOTAL BILIRUBIN 0.6 mg/dL (0.2-1.0); TOTAL PROTEIN 7.1 g/dL (6.4-8.2)
[2018-12-09 00:09] LABS: HEMOGLOBIN A1C 5.1 % (4.8-5.6)
== END | disposition home or self-care (01) ==
LOC: LAB 08:41
PROVIDERS: ATTEND Internal Medicine Infectious Disease
DX: L89.893 Pressure ulcer of other site, stage 3 (principal)
CPT/HCPCS: 36415; 80053; 83036; 85025; 85651; 86140

== ENCOUNTER 2018-12-19 11:27 | Emergency (ER) | payer BC ==
[~2018-12-19] VITALS: Ht 165.1 cm; Wt 77.1 kg
--- NOTE | 2018-12-19 12:43 | PHYS DOC ---
Past Medical History Past Medical History: Asthma, Depression, High Cholesterol, Hypertension (KVNG SCHUMACHER APRN) Past Surgical History: Cholecystectomy, Knee Replacement, Tonsillectomy, Other Additional Past Surgical Histo: carpal tunnel (KVNG SCHUMACHER APRN) Alcohol Use: Occasionally Drug Use: None (KVNG SCHUMACHER APRN) Adult General Chief Complaint Chief Complaint: LOWER EXTREMITY SWELLING HPI HPI 63-year-old female presents to ER via POV for complaints of left knee pain and swelling. She reports symptoms started on Tuesday and have been gradually worsening. She reports she has warmth in her left knee. She reports she has been able to walk but does have increased pain with weightbearing. She denies injury or falls. She reports she has had total left knee replacement last year. Patient states she is currently on Augmentin for left middle toe infection and is on the eighth day of the antibiotics. She denies fever. She reports she has been i ntermittently nauseated denies vomiting episodes. Patient reports she is a former smoker quit years ago. Patient denies any recent travel, previous clot history, blood clotting disorders, or hormonal therapy. (KVNG SCHUMACHER APRN) Review of Systems Review of Systems Constitutional: Denies fever or chills [] Eyes: Denies change in visual acuity, redness, or eye pain [] HENT: Denies nasal congestion or sore throat [] Respiratory: Denies cough or shortness of breath [] Cardiovascular: No additional information not addressed in HPI [] GI: Denies abdominal pain, vomiting, bloody stools or diarrhea. Reports intermittent nausea. : Denies dysuria or hematuria [] Musculoskeletal: Denies back pain. Reports lt knee pain/swelling. Reports lt middle toe infection. Reports numbness in lt lateral knee no acute changes- states has been numb since knee replacement Integument: Denies rash or skin lesions [] Neurologic: Denies headache, focal weakness or sensory changes [] Endocrine: Denies polyuria or polydipsia [] All other systems were reviewed and found to be within normal limits, except as documented in this note. (KVNG SCHUMACHER APRN) Current Medications Current Medications Current Medications Medications (Trade) Dose Ordered Sig/Maria Eugenia Start Time Stop Time Status Last Admin Dose Admin Potassium Chloride (Klor-Con) 40 meq 1X ONCE 12/19/18 14:00 12/19/18 14:01 DC 12/19/18 14:23 40 MEQ (AALIYAH AGUSTIN MD) Allergies Allergies Allergies Coded Allergies Type Severity Reaction Last Updated Verified adhesive Allergy Intermediate STERISTRIPS 12/23/17 Yes aspirin Allergy Intermediate 12/23/17 Yes butalbital Allergy Intermediate 12/23/17 Yes caffeine Allergy Intermediate 12/23/17 Yes (AALIYAH AGUSTIN MD) Physical Exam Physical Exam Constitutional: Well developed, well nourished, no acute distress, non-toxic appearance. [] HENT: Normocephalic, atraumatic, bilateral external ears normal, oropharynx moist, no oral exudates, nose normal. [] Eyes: Pupils equal, conjunctiva normal, no discharge. [] Neck: Normal range of motion, no tenderness, supple, no stridor. [] Cardiovascular: Heart rate regular rhythm, no murmur [] Lungs & Thorax: Bilateral breath sounds clear to auscultation. Resp. equal/nonlabored Abdomen: Bowel sounds normal, soft, no tenderness Skin: Warm, dry, no erythema, no rash. [] Back: No tenderness, no CVA tenderness. [] Extremities: No cyanosis, no clubbing, ROM intact- does have increased lt knee pain w/movements. Swelling to lt anterior knee and warmth- no erythema/palp. deformity. Lt middle toe erythema- no swelling. Small wound on medial surface of toe- no drainage. 2+ bilat. dorsalis pedis. No calf tenderness- calf size symmetric. No palp. masses Neurologic: Alert and oriented X 3, normal motor function, normal sensory function, no focal deficits noted. [] Psychologic: Affect normal, judgement normal, mood normal. [] (REFFITT,KVNG Garcia APRN) Current Patient Data Vital Signs Vital Signs Date Time Temp Pulse Resp B/P (MAP) Pulse Ox O2 Delivery O2 Flow Rate FiO2 12/19/18 13:53 90 18 142/73 (96) 95 Room Air 12/19/18 11:30 98.5 98.5 (AALIYAH AGUSTIN MD) Lab Values Laboratory Tests Test 12/19/18 12:10 White Blood Count 12.8 x10^3/uL (4.0-11.0) H Red Blood Count 3.65 x10^6/uL (3.50-5.40) Hemoglobin 10.9 g/dL (12.0-15.5) L Hematocrit 33.0 % (36.0-47.0) L Mean Corpuscular Volume 91 fL (79-100) Mean Corpuscular Hemoglobin 30 pg (25-35) Mean Corpuscular Hemoglobin Concent 33 g/dL (31-37) Red Cell Distribution Width 13.0 % (11.5-14.5) Platelet Count 196 x10^3/uL (140-400) Neutrophils (%) (Auto) 83 % (31-73) H Lymphocytes (%) (Auto) 8 % (24-48) L Monocytes (%) (Auto) 8 % (0-9) Eosinophils (%) (Auto) 1 % (0-3) Basophils (%) (Auto) 0 % (0-3) Neutrophils # (Auto) 10.6 x10^3uL (1.8-7.7) H Lymphocytes # (Auto) 1.0 x10^3/uL (1.0-4.8) Monocytes # (Auto) 1.0 x10^3/uL (0.0-1.1) Eosinophils # (Auto) 0.1 x10^3/uL (0.0-0.7) Basophils # (Auto) 0.0 x10^3/uL (0.0-0.2) Sodium Level 146 mmol/L (136-145) H Potassium Level 3.1 mmol/L (3.5-5.1) L Chloride Level 108 mmol/L (98-107) H Carbon Dioxide Level 24 mmol/L (21-32) Anion Gap 14 (6-14) Blood Urea Nitrogen 15 mg/dL (7-20) Creatinine 0.8 mg/dL (0.6-1.0) Estimated GFR (Cockcroft-Gault) 72.9 Glucose Level 95 mg/dL (70-99) Calcium Level 8.9 mg/dL (8.5-10.1) Laboratory Tests 12/19/18 12:10 Laboratory Tests 12/19/18 12:10 (AALIYAH AGUSTIN MD) Lab Values Laboratory Tests Test 12/19/18 12:10 White Blood Count 12.8 x10^3/uL (4.0-11.0) H Red Blood Count 3.65 x10^6/uL (3.50-5.40) Hemoglobin 10.9 g/dL (12.0-15.5) L Hematocrit 33.0 % (36.0-47.0) L Mean Corpuscular Volume 91 fL (79-100) Mean Corpuscular Hemoglobin 30 pg (25-35) Mean Corpuscular Hemoglobin Concent 33 g/dL (31-37) Red Cell Distribution Width 13.0 % (11.5-14.5) Platelet Count 196 x10^3/uL (140-400) Neutrophils (%) (Auto) 83 % (31-73) H Lymphocytes (%) (Auto) 8 % (24-48) L Monocytes (%) (Auto) 8 % (0-9) Eosinophils (%) (Auto) 1 % (0-3) Basophils (%) (Auto) 0 % (0-3) Neutrophils # (Auto) 10.6 x10^3uL (1.8-7.7) H Lymphocytes # (Auto) 1.0 x10^3/uL (1.0-4.8) Monocytes # (Auto) 1.0 x10^3/uL (0.0-1.1) Eosinophils # (Auto) 0.1 x10^3/uL (0.0-0.7) Basophils # (Auto) 0.0 x10^3/uL (0.0-0.2) Sodium Level 146 mmol/L (136-145) H Potassium Level 3.1 mmol/L (3.5-5.1) L Chloride Level 108 mmol/L (98-107) H Carbon Dioxide Level 24 mmol/L (21-32) Anion Gap 14 (6-14) Blood Urea Nitrogen 15 mg/dL (7-20) Creatinine 0.8 mg/dL (0.6-1.0) Estimated GFR (Cockcroft-Gault) 72.9 Glucose Level 95 mg/dL (70-99) Calcium Level 8.9 mg/dL (8.5-10.1) Laboratory Tests 12/19/18 12:10 Laboratory Tests 12/19/18 12:10 (KVNG SCHUMACHER APRN) EKG EKG [] (KVNG SCHUMACHER APRN) Radiology/Procedures Radiology/Procedures PROCEDURE: KNEE LEFT 3V KNEE LEFT 3V Clinical Indication: LT KNEE PAIN AND SWELLING SINCE TUESDAY. NO KNOWN INJURY Comparison: None. Findings: There is knee arthroplasty. The alignment is anatomic. No evidence of loosening. No acute fracture. Mineralization is normal. There is moderate joint effusion. Patella in anatomic position. IMPRESSION: 1. No acute fracture. 2. Moderate joint effusion. Electronically signed by: Jameel Joseph MD (12/19/2018 1:00 PM) [id number] DICTATED and SIGNED BY: JAMEEL JOSEPH MD DATE: 12/19/18 1300 PROCEDURE: VENOUS LOWER EXTREMITY LEFT Left lower extremity venous duplex ultrasound study without comparison for left lower extremity swelling and pain. TECHNIQUE AND FINDINGS: Real-time grayscale and color and spectral Doppler evaluation of the veins of left lower chemises performed. The left common femoral, superficial femoral, popliteal, and posterior tibial veins are all widely patent, demonstrating normal compressibility and color flow. Augmentation is present within the common femoral, superficial femoral, and popliteal veins. Greater saphenous vein is also present and patent. There is a 3.5 x 4.2 x 1.2 cm anechoic fluid collection in the popliteal fossa consistent with a Kwong's cyst. Right common femoral vein is also patent. IMPRESSION: 1. 4.2 cm left Kwong cyst. No evidence of DVT. Electronically signed by: David Loving MD (12/19/2018 1:12 PM) [id number] DICTATED and SIGNED BY: DAVID LOVING MD DATE: 12/19/18 1312 (KVNG SCHUMACHER APRN) Course & Med Decision Making Course & Med Decision Making Pertinent Labs and Imaging studies reviewed. (See chart for details) 1320: Discussed test results with patient and she remains PMS intact in left low er extremity denying any change in symptoms. WBCs at 12.8 no bands. Lt knee xray with joint effusion noted. US lt LE with 4cm Kwong's cyst reported- no DVT. Discussed plans for Joey wrap to be applied to left knee and patient to call and schedule an appointment with her orthopedic doctor soon as possible for reevaluation and further care. Pt had 3.1 K+ on labs and this was discussed along with plans for 40 meq K+ replacement. Pt states she has Lortab pain medication she can take for discomfort. Patient has been ambulatory without assistive device denying any difficulty with walking. Education provided on signs and symptoms to return to ER. Discharge instructions were discussed. (KVNG SCHUMACHER APRN) Course & Med Decision Making I was available for consultation regarding this patient's care. I did not see or examine the pt unless otherwise specified. (AALIYAH AGUSTIN MD) Dragon Disclaimer Dragon Disclaimer This electronic medical record was generated, in whole or in part, using a voice recognition dictation system. (KVNG SCHUMACHER APRN) Departure Departure Impression: Primary Impression: Joint effusion of knee Additional Impressions: Kwong's cyst of knee Hypokalemia Disposition: HOME, SELF-CARE Condition: STABLE Referrals: RABIA TRUJILLO MD (PCP) Patient Instructions: Kwong's Cyst, Hypokalemia, Knee Effusion, Knee Wraps (Elastic Bandage) and RICE Additional Instructions: As discussed call and schedule follow-up with your orthopedic doctor as soon as possible. Wear joey wrap for left knee compression- avoid tight application which may constrict blood flow. Problem Qualifiers KVNG SCHUMACHER APRN Dec 19, 2018 12:43 AALIYAH AGUSTIN MD Dec 19, 2018 17:34
[2018-12-19 12:45] LABS: BASO % 0 % (0-3); EOS # 0.1 x10^3/uL (0.0-0.7); EOS % 1 % (0-3); HEMOGLOBIN 10.9 g/dL (12.0-15.5); LYMPH % 8 % (24-48); MEAN CORPUSCULAR HEMOGLOBIN 30 pg (25-35); MEAN CORPUSCULAR HGB CONC 33 g/dL (31-37); MEAN CORPUSCULAR VOLUME 91 fL (79-100); MONO % 8 % (0-9); NEUT # 10.6 x10^3uL (1.8-7.7); NEUT % 83 % (31-73); PLATELET COUNT 196 x10^3/uL (140-400); RED BLOOD COUNT 3.65 x10^6/uL (3.50-5.40); WHITE BLOOD COUNT 12.8 x10^3/uL (4.0-11.0)
[2018-12-19 12:51] LABS: CALCIUM 8.9 mg/dL (8.5-10.1); CREATININE 0.8 mg/dL (0.6-1.0); GFR 72.9; POTASSIUM 3.1 mmol/L (3.5-5.1)
--- NOTE | 2018-12-19 13:03 | RAD ---
KNEE LEFT 3V Clinical Indication: LT KNEE PAIN AND SWELLING SINCE TUESDAY. NO KNOWN INJURY Comparison: None. Findings: There is knee arthroplasty. The alignment is anatomic. No evidence of loosening. No acute fracture. Mineralization is normal. There is moderate joint effusion. Patella in anatomic position. IMPRESSION: 1. No acute fracture. 2. Moderate joint effusion. Electronically signed by: Jameel Joseph MD (12/19/2018 1:00 PM) [id number]
--- NOTE | 2018-12-19 13:15 | RAD ---
Left lower extremity venous duplex ultrasound study without comparison for left lower extremity swelling and pain. TECHNIQUE AND FINDINGS: Real-time grayscale and color and spectral Doppler evaluation of the veins of left lower chemises performed. The left common femoral, superficial femoral, popliteal, and posterior tibial veins are all widely patent, demonstrating normal compressibility and color flow. Augmentation is present within the common femoral, superficial femoral, and popliteal veins. Greater saphenous vein is also present and patent. There is a 3.5 x 4.2 x 1.2 cm anechoic fluid collection in the popliteal fossa consistent with a Kwong's cyst. Right common femoral vein is also patent. IMPRESSION: 1. 4.2 cm left Kwong cyst. No evidence of DVT. Electronically signed by: David Clemente MD (12/19/2018 1:12 PM) [id number]
[2018-12-19 13:53] VITALS: BP 142/73
[2018-12-19] MEDS ORDERED: POTASSIUM CHLORIDE 20 MEQ TABLET.ER. PO ONE (14:00)
== END 2018-12-19 14:30 | disposition home or self-care (01) ==
LOC: ER 11:27
DX: M71.22 Synovial cyst of popliteal space [Baker], left knee (principal); M25.462 Effusion, left knee; E87.6 Hypokalemia; I10 Essential (primary) hypertension; E78.00 Pure hypercholesterolemia, unspecified; J45.909 Unspecified asthma, uncomplicated; Z88.6 Allergy status to analgesic agent; Z88.8 Allergy status to other drugs, medicaments and biological substances
CPT/HCPCS: 36415; 73562; 80048; 85025; 93971; 99285-25

== ENCOUNTER 2019-01-09 07:37 | Outpatient (CLI) | payer BC ==
[~2019-01-09 07:37] MED LIST changes: -ERTAPENEM 1GM IVPB (GENERIC) 50 ML IV ONE; -MONT10TA49 PO; +MONT10TA9 PO
[2019-01-09] MEDS ORDERED: LIDOCAINE WITH 8.4% SOD BICARB 3 ML DISP.SYRIN. ONE (08:09)
[2019-01-09] MEDS ORDERED: LIDOCAINE WITH 8.4% SOD BICARB 3 ML DISP.SYRIN. IJ ONE (08:30)
[2019-01-09] MEDS ORDERED: IOHEXOL 240 MG/ML 50ML VIAL. IV ONE (08:30)
[2019-01-09] MEDS ORDERED: IV NORMAL SALINE 250ML 250 ML IV ONE (08:30)
[2019-01-09] MEDS ORDERED: IOHEXOL 240 MG/ML 50ML VIAL. ONE (08:32)
[2019-01-09] MEDS ORDERED: CONTRAST GIVEN. MC PRN (08:45)
--- NOTE | 2019-01-09 13:12 | RAD ---
Exam: Fluoroscopic and ultrasound guided right percutaneous inserted central venous catheter placement 01/09/2019 1:08 PM .Indication: Infusions Technique: Informed oral and written consent were obtained. The right upper extremity was prepped and draped using sterile barrier technique. All elements of maximal sterile barrier technique including the use of a cap, mask, sterile gown, sterile gloves, large sterile sheet, appropriate hand hygiene, and 2% chlorhexidine for cutaneous antisepsis (or acceptable alternative antiseptic per current guidelines) were followed for this procedure.. Real-time ultrasound demonstrated a patent right basilic vein. The right upper extremity was prepped and draped in usual sterile fashion. 1% lidocaine used for local anesthesia. Using real-time ultrasound guidance the access needle percutaneously punctured the selected vein. Reference ultrasound images were saved to the medical record. A guidewire was advanced through the needle to the cavoatrial junction, and a peel-away sheath placed. The catheter was cut to length and inserted through the peel-away sheath such that its tip is at the cavoatrial junction. The wire and sheath were removed, and the catheter secured in place, and a sterile dressing was applied. Catheter was found to flush and aspirate normally. No immediate complications are identified. FLUORO TIME: 2.0 min DOSE AREA PRODUCT: 1 Gycm2 Impression: Ultrasound and fluoroscopically guided placement of a right upper extremity PICC line.
== END 2019-01-09 08:45 | disposition home or self-care (01) ==
LOC: INTRAD 07:37
PROVIDERS: ATTEND Internal Medicine Infectious Disease
DX: Z45.2 Encounter for adjustment and management of vascular access device (principal); Z88.6 Allergy status to analgesic agent; Z91.041 Radiographic dye allergy status; Z88.8 Allergy status to other drugs, medicaments and biological substances; Z91.048 Other nonmedicinal substance allergy status
CPT/HCPCS: 36573; C1751; C1892; J7050; Q9966; 36569; 76937; 77001; J7030

== ENCOUNTER → 2019-01-09 | Outpatient (CLI) | payer BC ==
[~2019-01-09] MED LIST changes: +ERTAPENEM 1GM IVPB (GENERIC) 50 ML IV ONE; +MONT10TA49 PO; -MONT10TA9 PO
[2019-01-09 09:39] VITALS: BP 149/71
== END | disposition home or self-care (01) ==
LOC: OPS 08:52
PROVIDERS: ATTEND Internal Medicine Infectious Disease
DX: M86.9 Osteomyelitis, unspecified (principal); I10 Essential (primary) hypertension; E78.00 Pure hypercholesterolemia, unspecified; J45.909 Unspecified asthma, uncomplicated
CPT/HCPCS: 96365; J1335

== ENCOUNTER 2020-07-02 13:09 | Inpatient (IN) | payer BC ==
[~2020-07-02] VITALS: Ht 165.1 cm; Wt 76.0 kg
[~2020-07-02 13:09] MED LIST changes: +AMLO-187 PO; -AMLO10TA8 PO; +MONT10TA49 PO; -MONT10TA9 PO; +MORPHINE SULFATE 4 MG/ML VIAL. IV PRN
[2020-07-02 14:28] LABS: BILIRUBIN,URINE NEGATIVE (NEG); CLARITY,URINE CLEAR; COLOR,URINE YELLOW; NITRITE,URINE NEGATIVE (NEG); PROTEIN,URINE 100 mg/dL (NEG-TRACE); UROBILINOGEN,URINE 0.2 mg/dL (0.2 mg/dL)
[2020-07-02 14:33] LABS: BACTERIA,URINE MANY /HPF (0-FEW); RBC,URINE OCC /HPF (0-2); WBC,URINE 20-40 /HPF (0-4)
[2020-07-02 14:53] LABS: BASO % 0 % (0-3); EOS % 0 % (0-3); HEMATOCRIT 32.5 % (36.0-47.0); HEMOGLOBIN 10.8 g/dL (12.0-15.5); LYMPH # 0.4 x10^3/uL (1.0-4.8); LYMPH % 2 % (24-48); MEAN CORPUSCULAR HEMOGLOBIN 30 pg (25-35); MEAN CORPUSCULAR HGB CONC 33 g/dL (31-37); MEAN CORPUSCULAR VOLUME 92 fL (79-100); MONO # 1.9 x10^3/uL (0.0-1.1); MONO % 10 % (0-9); NEUT # 16.4 x10^3/uL (1.8-7.7); NEUT % 87 % (31-73); PLATELET COUNT 242 x10^3/uL (140-400); RED BLOOD COUNT 3.55 x10^6/uL (3.50-5.40); RED CELL DISTRIBUTION WIDTH 12.5 % (11.5-14.5); WHITE BLOOD COUNT 18.8 x10^3/uL (4.0-11.0)
[2020-07-02] MEDS ORDERED: fentaNYL PF VIAL 100 MCG/2 ML VIAL IVP ONE (15:00)
[2020-07-02] MEDS ORDERED: IV NORMAL SALINE 1000ML BAG 1,000 ML IV ONE (15:00)
[2020-07-02 15:03] LABS: PROTHROMBIN TIME PATIENT 13.6 SEC (11.7-14.0)
[2020-07-02 15:06] LABS: CREATININE 0.8 mg/dL (0.6-1.0); GFR 72.4; POTASSIUM 3.2 mmol/L (3.5-5.1)
--- NOTE | 2020-07-02 15:06 | RAD ---
EXAM: Chest, single view. HISTORY: Fever. COMPARISON: None. FINDINGS: A frontal view of the chest is obtained. There is no infiltrate, pleural effusion or pneumothorax. The heart is normal in size. IMPRESSION: No acute pulmonary finding. Electronically signed by: Samreen Thompson MD (07/02/2020 3:02 PM) [id number]
[2020-07-02 15:13] LABS: ALBUMIN 3.3 g/dL (3.4-5.0); ALBUMIN/GLOBULIN RATIO 0.9 (1.0-1.7); TOTAL BILIRUBIN 0.8 mg/dL (0.2-1.0); TOTAL PROTEIN 7.1 g/dL (6.4-8.2)
[2020-07-02 15:13] LABS: INFLUENZA A PATIENT NEGATIVE (NEGATIVE); INFLUENZA B PATIENT NEGATIVE (NEGATIVE)
[2020-07-02 15:16] LABS: % BANDS 17 % (0-9); % BASOS 1 % (0-3); % LYMPHS 1 % (24-48); % MONOS 6 % (0-10); % SEGS 75 % (35-66)
[2020-07-02 15:18] LABS: PLT ESTIMATE ADEQUATE (ADEQUATE); TOXIC GRANULATION SLIGHT
--- NOTE | 2020-07-02 15:22 | PHYS DOC ---
Past Medical History Past Medical History: Asthma, Depression, GERD, High Cholesterol, Hypertension Additional Past Medical Histor: CHRONIC BACK PAIN (ADAM LOTT [employer]) Past Surgical History: Cholecystectomy, Hysterectomy, Knee Replacement, Tonsillectomy, Other Additional Past Surgical Histo: CARPAL TUNNEL, 2 BACK SX (ADAM LOTT [employer]) Smoking Status: Former Smoker Alcohol Use: Occasionally Drug Use: None [facility]) General Adult EDM: Chief Complaint: FEVER HPI: HPI: Patient is a 65 year old female who presents with 2 days of bilateral lower dull aching abdominal pain with a fever. Patient states her fever this morning was 102.7. Here in ED her temperature was 100.7. Before coming around noon patient took Ibuprofen and [place]. Patient states that she is slightly nauseated but has been eating and drinking. She states that she does have a lack of appetite and ate last yesterday. She denies vomiting, diarrhea, constipation, urinary symptoms, back pain, chest pain, shortness of air, cough, headache, dizziness, numbness or tingling. Nothing makes her pain worse or better. She is rating her pain a 7 out of 10. There is no radiation. Patient has a history of former smoker, GERD, high cholesterol, hypertension, asthma, depression, cholecystectomy cystectomy, hysterectomy, knee replacement, tonsillectomy. (ADAM LOTT [employer]) Review of Systems: Review of Systems: Constitutional: + fever or chills. [] Eyes: Denies change in visual acuity. [] HENT: Denies nasal congestion or sore throat. [] Respiratory: Denies cough or shortness of breath. [] Cardiovascular: Denies chest pain or edema. [] GI: +abdominal pain, + lack of appetite, denies nausea, vomiting, bloody stools or diarrhea. [] : Denies dysuria. [] Musculoskeletal: Denies back pain or joint pain. [] Integument: Denies rash. [] Neurologic: Denies headache, focal weakness or sensory changes. [] Endocrine: Denies polyuria or polydipsia. [] Lymphatic: Denies swollen glands. [] Psychiatric: Denies depression or anxiety. [] (ADAM LOTT [employer]) Heart Score: Risk Factors: Risk Factors: DM, Current or recent (<one month) smoker, HTN, HLP, family history of CAD, obesity. Risk Scores: Score 0 - 3: 2.5% MACE over next 6 weeks - Discharge Home Score 4 - 6: 20.3% MACE over next 6 weeks - Admit for Clinical Observation Score 7 - 10: 72.7% MACE over next 6 weeks - Early Invasive Strategies (ADAM LOTT APRN) Current Medications: Current Medications Medications (Trade) Dose Ordered Sig/Maria Eugenia Start Time Stop Time Status Last Admin Dose Admin Fentanyl Citrate (Fentanyl 2ml Vial) 50 mcg 1X ONCE 07/02/20 15:00 07/02/20 15:01 DC Sodium Chloride 1,000 ml @ 1,000 mls/hr 1X ONCE 07/02/20 15:00 07/02/20 15:59 (ADAM LOTT APRN) Allergies: Allergies: Allergies Coded Allergies Type Severity Reaction Last Updated Verified adhesive Allergy Intermediate STERISTRIPS 01/09/19 Yes aspirin Allergy Intermediate 01/09/19 Yes butalbital Allergy Intermediate 01/09/19 Yes caffeine Allergy Intermediate 01/09/19 Yes Iodinated Contrast Media Adverse Reaction Intermediate 01/09/19 Yes (ADAM LOTT APRN) Physical Exam: PE: Constitutional: Well developed, well nourished, no acute distress, non-toxic appearance. [] HENT: Normocephalic, atraumatic, bilateral external ears normal, oropharynx moist, no oral exudates, nose normal. [] Eyes: PERRLA, EOMI, conjunctiva normal, no discharge. [] Neck: Normal range of motion, no tenderness, supple, no stridor. [] Cardiovascular:Heart rate regular rhythm, no murmur [] Lungs & Thorax: Bilateral breath sounds clear to auscultation [] Abdomen: Bowel sounds normal, soft, mid lower tenderness, no masses, no pulsatile masses. [] Skin: Warm, dry, no erythema, no rash. [] Back: No tenderness, no CVA tenderness. [] Extremities: No tenderness, no cyanosis, no clubbing, ROM intact, no edema. [] Neurologic: Alert and oriented X 3, normal motor function, normal sensory function, no focal deficits noted. [] Psychologic: Affect normal, judgement normal, mood normal. [] (ADAM LOTT APRN) Current Patient Data: Labs: Laboratory Tests Test 07/02/20 14:00 07/02/20 14:30 07/02/20 14:37 Urine Collection Type Unknown Urine Color Yellow Urine Clarity Clear Urine pH 6.0 (<5.0-8.0) Urine Specific Mabel 1.015 (1.000-1.030) Urine Protein 100 mg/dL (NEG-TRACE) Urine Glucose (UA) Negative mg/dL (NEG) Urine Ketones (Stick) Negative mg/dL (NEG) Urine Blood Small (NEG) Urine Nitrite Negative (NEG) Urine Bilirubin Negative (NEG) Urine Urobilinogen Dipstick 0.2 mg/dL (0.2 mg/dL) Urine Leukocyte Esterase Moderate (NEG) Urine RBC Occ /HPF (0-2) Urine WBC 20-40 /HPF (0-4) Urine Squamous Epithelial Cells Few /LPF Urine Bacteria Many /HPF (0-FEW) Urine Mucus Mod /LPF Influenza Type A Antigen Negative (NEGATIVE) Influenza Type B Antigen Negative (NEGATIVE) White Blood Count 18.8 x10^3/uL (4.0-11.0) H Red Blood Count 3.55 x10^6/uL (3.50-5.40) Hemoglobin 10.8 g/dL (12.0-15.5) L Hematocrit 32.5 % (36.0-47.0) L Mean Corpuscular Volume 92 fL (79-100) Mean Corpuscular Hemoglobin 30 pg (25-35) Mean Corpuscular Hemoglobin Concent 33 g/dL (31-37) Red Cell Distribution Width 12.5 % (11.5-14.5) Platelet Count 242 x10^3/uL (140-400) Neutrophils (%) (Auto) 87 % (31-73) H Lymphocytes (%) (Auto) 2 % (24-48) L Monocytes (%) (Auto) 10 % (0-9) H Eosinophils (%) (Auto) 0 % (0-3) Basophils (%) (Auto) 0 % (0-3) Neutrophils # (Auto) 16.4 x10^3/uL (1.8-7.7) H Lymphocytes # (Auto) 0.4 x10^3/uL (1.0-4.8) L Monocytes # (Auto) 1.9 x10^3/uL (0.0-1.1) H Eosinophils # (Auto) 0.0 x10^3/uL (0.0-0.7) Basophils # (Auto) 0.0 x10^3/uL (0.0-0.2) Platelet Estimate Pending Prothrombin Time 13.6 SEC (11.7-14.0) Prothrombin Time INR 1.1 (0.8-1.1) Sodium Level 138 mmol/L (136-145) Potassium Level 3.2 mmol/L (3.5-5.1) L Chloride Level 101 mmol/L (98-107) Carbon Dioxide Level 24 mmol/L (21-32) Anion Gap 13 (6-14) Blood Urea Nitrogen 14 mg/dL (7-20) Creatinine 0.8 mg/dL (0.6-1.0) Estimated GFR (Cockcroft-Gault) 72.4 BUN/Creatinine Ratio 18 (6-20) Glucose Level 136 mg/dL (70-99) H Calcium Level 9.0 mg/dL (8.5-10.1) Total Bilirubin Pending Aspartate Amino Transferase (AST) Pending Alanine Aminotransferase (ALT) Pending Alkaline Phosphatase Pending Total Protein Pending Albumin Pending Albumin/Globulin Ratio Pending Laboratory Tests 07/02/20 14:37 Laboratory Tests 07/02/20 14:37 Vital Signs: Vital Signs Date Time Temp Pulse Resp B/P (MAP) Pulse Ox O2 Delivery O2 Flow Rate FiO2 07/02/20 14:19 100.7 99 20 146/70 (95) 95 Room Air 100.7 (ADAM LOTT APRN) EKG: EKG: [] (ADAM LOTT APRN) Radiology/Procedures: Radiology/Procedures: [] Impression: [facility] [address] [place] [address] IMAGING REPORT Signed PATIENT: AMIRA ALEX ACCOUNT: [id number] : 1955 LOCATION: ER AGE: 65 SEX: F EXAM STATUS: REG ER ORD. PHYSICIAN: ADAM LOTT APRN REASON: fever, NURSE WITH PT 2:40 PROCEDURE: PORTABLE CHEST 1V EXAM: Chest, single view. HISTORY: Fever. COMPARISON: None. FINDINGS: A frontal view of the chest is obtained. There is no infiltrate, pleural effusion or pneumothorax. The heart is normal in size. IMPRESSION: No acute pulmonary finding. Electronically signed by: Samreen Melendez MD (07/02/2020 3:02 PM) [id number] DICTATED and SIGNED BY: SAMREEN MELENDEZ MD DATE: 07/02/20 1502 [facility] [address] [place] [address] IMAGING REPORT Signed PATIENT: AMIRA ALEX ACCOUNT: [id number] : 1955 LOCATION: ER AGE: 65 SEX: F EXAM STATUS: REG ER ORD. PHYSICIAN: ADAM LOTT APRN REASON: PAIN, FEVER PROCEDURE: CT ABD PELV W/ IV CONTRST ONLY EXAM: Abdomen and pelvis CT with intravenous contrast. HISTORY: Pain. TECHNIQUE: Computed tomographic images of the abdomen and pelvis were obtained following the administration of intravenous contrast. Multiplanar reformatting was performed. *One or more of the following individualized dose reduction techniques were utilized for this examination: 1. Automated exposure control. 2. Adjustment of the mA and/or kV according to patient size. 3. Use of iterative reconstruction technique. COMPARISON: 07/10/2017 FINDINGS: Evaluation of the lower thorax demonstrates no infiltrate or pleural effusion. There is minimal posterior dependent atelectasis. The heart is normal in size. There is intrahepatic and extra hepatic biliary ductal dilatation. This may be due to reservoir effect status post cholecystectomy. No focal hepatic lesion is seen. There is mild elongation of the right hepatic lobe. The pancreas, spleen, stomach and adrenal glands are unremarkable. There is mild bilateral hydronephrosis and proximal periureteral stranding. No obstructing lesion is seen. There is a small cyst within lower pole the left kidney. This is simple in appearance. There are small hypodense lesions within the lateral lower mid zone of the left kidney measuring 9 mm and 11 mm. These are too small to characterize. The bladder is nearly empty. There is no abnormally thickened or dilated loop of bowel. The uterus is surgically absent. The aorta is normal in caliber. There is no lymphadenopathy. There is no suspicious osseous lesion. There is instrumented fusion at L4-L5. There is multilevel degenerative change involving the spine. IMPRESSION: 1. Mild bilateral hydronephrosis and proximal periureteral stranding. No obstructing lesion is seen. Correlate with urinalysis to changes due to an ascending urinary tract infection. 2. Small simple left renal cyst. There are also small hypodense lesions within the left kidney measure too small to characterize. These may be complicated cysts. Renal sonography can be performed to confirm the [place] 3. Biliary ductal dilatation. This can be seen with reservoir effect status post cholecystectomy. Electronically signed by: Samreen Melendez MD (07/02/2020 4:00 PM) [id number] DICTATED and SIGNED BY: SAMREEN MELENDEZ MD DATE: 07/02/20 1600 (ADAM LOTT APRN) Course & Med Decision Making: Course & Med Decision Making Pertinent Labs and Imaging studies reviewed. (See chart for details) See HPI. Alert and oriented x4. Abdomen is soft but slightly tender mid to left lower abdomen. Ambulatory with steady gait. Speaks in full complete sentences. Skin pink warm and dry. Lungs are clear to auscultation all lobes. Blood work shows a white count of 18.8. She does have bands. Her analysis shows infection. CT scanning shows pyelonephrosis. Patient is given Rocephin in the ED and admitted to hospitalist Dr Monroy. [] (ADAM LOTT APRN) Dragon Disclaimer: Dragon Disclaimer: This electronic medical record was generated, in whole or in part, using a voice recognition dictation system. (ADAM LOTT APRN) Departure Departure Impression: Primary Impression: Pyelonephritis Disposition: ADMITTED INPT THIS HOSP Admitting Physician: CLAU (ADAM LOTT APRN) Condition: STABLE Referrals: RABIA TRUJILLO MD (PCP) Attending Signature Attending Signature I have reviewed the non-physician practitioner's documentation, personally taken the patient's history, performed an exam and agree with the physical findings, clinical impression, and management plan. (VALORIE OSEGUERA DO) Attending Signature I have participated in the care of this patient and I have reviewed and agree with all pertinent clinical information above including history, exam, and recommendations. (ADAM LOTT APRN) ADAM LOTT APRN Jul 02, 2020 15:22 VALORIE OSEGUERA DO Jul 02, 2020 16:15
[2020-07-02] MEDS ORDERED: IOHEXOL 300 MG/ML 100ML VIAL. IV ONE (15:45)
--- NOTE | 2020-07-02 16:03 | RAD ---
EXAM: Abdomen and pelvis CT with intravenous contrast. HISTORY: Pain. TECHNIQUE: Computed tomographic images of the abdomen and pelvis were obtained following the administration of intravenous contrast. Multiplanar reformatting was performed. *One or more of the following individualized dose reduction techniques were utilized for this examination: 1. Automated exposure control. 2. Adjustment of the mA and/or kV according to patient size. 3. Use of iterative reconstruction technique. COMPARISON: 07/10/2017 FINDINGS: Evaluation of the lower thorax demonstrates no infiltrate or pleural effusion. There is minimal posterior dependent atelectasis. The heart is normal in size. There is intrahepatic and extra hepatic biliary ductal dilatation. This may be due to reservoir effect status post cholecystectomy. No focal hepatic lesion is seen. There is mild elongation of the right hepatic lobe. The pancreas, spleen, stomach and adrenal glands are unremarkable. There is mild bilateral hydronephrosis and proximal periureteral stranding. No obstructing lesion is seen. There is a small cyst within lower pole the left kidney. This is simple in appearance. There are small hypodense lesions within the lateral lower mid zone of the left kidney measuring 9 mm and 11 mm. These are too small to characterize. The bladder is nearly empty. There is no abnormally thickened or dilated loop of bowel. The uterus is surgically absent. The aorta is normal in caliber. There is no lymphadenopathy. There is no suspicious osseous lesion. There is instrumented fusion at L4-L5. There is multilevel degenerative change involving the spine. IMPRESSION: 1. Mild bilateral hydronephrosis and proximal periureteral stranding. No obstructing lesion is seen. Correlate with urinalysis to changes due to an ascending urinary tract infection. 2. Small simple left renal cyst. There are also small hypodense lesions within the left kidney measure too small to characterize. These may be complicated cysts. Renal sonography can be performed to confirm the [place] 3. Biliary ductal dilatation. This can be seen with reservoir effect status post cholecystectomy. Electronically signed by: Samreen Thompson MD (07/02/2020 4:00 PM) [id number]
[2020-07-02] MEDS ORDERED: cefTRIAXone IV Push 1 GM VIAL. IVP ONE (16:15)
[2020-07-02] MEDS ORDERED: ONDANSETRON PF 4 MG/2 ML VIAL. IV PRN (17:30)
[2020-07-02] MEDS: fentaNYL PF VIAL 100 MCG/2 ML VIAL IV PRN ×2 (17:33→23:47)
--- NOTE | 2020-07-02 18:46 | PDOC1 ---
History and Physical Date of Service: DOS: DATE: 07/02/20 TIME: 18:39 Chief Complaint: Chief Complain: Lower abdominal pain History of Present Illness: HPI: 65 year old female who presents with 2 days of right lower dull aching abdominal pain with a fever that began to radiate to the left side.. Patient states her fever this morning was 102.7. Here in ED her temperature was 100.7. Before coming around noon patient took Ibuprofen and [place]. Patient states that she is slightly nauseated but has been eating and drinking. She states that she does have a lack of appetite and ate last yesterday. She denies vomiting, diarrhea, constipation, urinary symptoms, back pain, chest pain, shortness of air, cough, headache, dizziness, numbness or tingling. Nothing makes her pain worse or better. She is rating her pain a 7 out of 10. Denies any bloody urine, brown urine, or bloody stools. Past Medical/Surgical History: PMH/PSH: Past Medical History: Asthma, Depression, GERD, High Cholesterol, Hypertension CHRONIC BACK PAIN Past Surgical History: Cholecystectomy, Hysterectomy, Knee Replacement, Tonsillectomy, CARPAL TUNNEL, 2 BACK SX Allergies: Allergies: Coded Allergies: adhesive (Verified Allergy, Intermediate, STERISTRIPS, 01/09/19) aspirin (Verified Allergy, Intermediate, 01/09/19) butalbital (Verified Allergy, Intermediate, 01/09/19) caffeine (Verified Allergy, Intermediate, 01/09/19) Family History: Family History: Reviewed and none reported Social History: Social History: Smoking Status: Former Smoker Alcohol Use: Occasionally Drug Use: None Current Medications: Current Medications Current Medications Sodium Chloride 1,000 ml @ 1,000 mls/hr 1X ONCE IV Last administered on 07/02/20at 15:00; Start 07/02/20 at 15:00; Stop 07/02/20 at 15:59; Status DC Fentanyl Citrate (Fentanyl 2ml Vial) 50 mcg 1X ONCE IVP Last administered on 07/02/20at 15:12; Start 07/02/20 at 15:00; Stop 07/02/20 at 15:01; Status DC Iohexol (Omnipaque 300 Mg/ml) 75 ml 1X ONCE IV Last administered on 07/02/20at 15:55; Start 07/02/20 at 15:45; Stop 07/02/20 at 15:46; Status DC Ceftriaxone Sodium (Rocephin) 1 gm 1X ONCE IVP Last administered on 07/02/20at 17:33; Start 07/02/20 at 16:15; Stop 07/02/20 at 16:16; Status DC Ondansetron HCl (Zofran) 4 mg PRN Q8HRS PRN IV NAUSEA/VOMITING; Start 07/02/20 at 17:30; Stop 07/03/20 at 17:29 Fentanyl Citrate (Fentanyl 2ml Vial) 50 mcg PRN Q1HR PRN IV PAIN Last administered on 07/02/20at 17:33; Start 07/02/20 at 17:30; Stop 07/03/20 at 17:29 Acetaminophen (Tylenol) 650 mg PRN Q4HRS PRN PO FEVER > 100.3'F; Start 07/02/20 at 17:30; Stop 07/03/20 at 17:29 Active Scripts Active Reported Tylenol (Acetaminophen) 325 Mg Tablet 500 Mg PO TID [Red Rice Yeast] 1 Tab HS Darcy Allergy (Fexofenadine Hcl) 180 Mg Tablet 1 Tab PO DAILY Avalide 300-12.5 Mg Tablet (Irbesartan/Hydrochlorothiazide) 1 Each Tablet 1 Each PO DAILY Zoloft (Sertraline Hcl) 25 Mg Tablet 100 Mg PO DAILY Wellbutrin Xl (Bupropion Hcl) 150 Mg Tab.er.24h 1 Tab PO DAILYWBKFT Crestor (Rosuvastatin Calcium) 10 Mg Tablet 10 Mg PO UD Montelukast Sodium Tablet (Montelukast Sodium) 10 Mg Tablet 10 Mg PO HS Amlodipine Besylate 10 Mg Tablet 5 Mg PO DAILY Advair 500-50 Diskus (Fluticasone/Salmeterol) 1 Each Disk.w.dev 1 Inh IH DAILY Hydrocodone-Apap 7.5-325 (Hydrocodone Bit/Acetaminophen) 1 Each Tablet 1 Tab PO PRN Q6HRS PRN ROS: Review of Systems Review of System REVIEW OF SYSTEMS: GENERAL: Denies weakness SKIN: No bruising, hair changes or rashes. EYES: No blurred, double or loss of vision. NOSE AND THROAT: No history of nosebleeds, hoarseness or sore throat. HEART: No history of palpitations, chest pain or shortness of breath on exertion. LUNGS: Denies cough, hemoptysis, wheezing or shortness of breath. GASTROINTESTINAL: Denies changes in appetite, nausea, vomiting, diarrhea or constipation. GENITOURINARY: No history of frequency, urgency, hesitancy or nocturia. NEUROLOGIC: Denies history of numbness, tingling, or tremor. PSYCHIATRIC: No history of panic, anxiety or depression. ENDOCRINE: No history of heat or cold intolerance, polyuria or polydipsia. EXTREMITIES: Denies joint pain, pain on walking or stiffness. Physical Exam: Vital Signs: Vital Signs Date Time Temp Pulse Resp B/P (MAP) Pulse Ox O2 Delivery O2 Flow Rate FiO2 07/02/20 18:20 100 20 129/60 (83) 96 Room Air 07/02/20 14:19 100.7 100.7 Physcial Exam: GEN: No apparent distress. Alert and oriented HEENT: Normal cephalic, atraumatic, external auditory canals are patent EYES: Extraocular muscles are intact, pupil are equally round and reactive to light and accommodation MUSCULOSKELETAL: Well developed , well nourished, good range of motion ENDOCRINE: No thyromegaly was palpated LYMPHATICS: No cervical chain or axillary nodes were noted HEMATOPOIETIC: No bruising NECK: Supple, no JVD, no thyromegaly was noted LUNGS: Clear to auscultation in all lung [place] without rhonchi or wheezing HEART: RRR, S!, S2 present. Peripheral pulses intact, no obvious murmurs noted ABDOMEN: Soft, nontender. Positive bowel sounds, no organomegaly, normal bowel sounds EXTREMITIES: Without clubbing, cyanosis, or edema. Pedal pulses intact. N egative Homans sign NEUROLOGIC: Normal speech and tone. A&O x 3, moves all extremities, no obvious focal deficits PSYCHIATRIC: Normal affect, normal mood. Stable SKIN: No ulcerations or rashes, good skin turgor, no jaundice VASCULAR: Good capillary refill, neurovascular bundle appears to be intact Labs: Labs: Laboratory Tests Test 07/02/20 14:00 07/02/20 14:30 07/02/20 14:37 Urine Collection Type Unknown Urine Color Yellow Urine Clarity Clear Urine pH 6.0 (<5.0-8.0) Urine Specific [place] 1.015 (1.000-1.030) Urine Protein 100 mg/dL (NEG-TRACE) Urine Glucose (UA) Negative mg/dL (NEG) Urine Ketones (Stick) Negative mg/dL (NEG) Urine Blood Small (NEG) Urine Nitrite Negative (NEG) Urine Bilirubin Negative (NEG) Urine Urobilinogen Dipstick 0.2 mg/dL (0.2 mg/dL) Urine Leukocyte Esterase Moderate (NEG) Urine RBC Occ /HPF (0-2) Urine WBC 20-40 /HPF (0-4) Urine Squamous Epithelial Cells Few /LPF Urine Bacteria Many /HPF (0-FEW) Urine Mucus Mod /LPF Influenza Type A Antigen Negative (NEGATIVE) Influenza Type B Antigen Negative (NEGATIVE) White Blood Count 18.8 x10^3/uL (4.0-11.0) Red Blood Count 3.55 x10^6/uL (3.50-5.40) Hemoglobin 10.8 g/dL (12.0-15.5) Hematocrit 32.5 % (36.0-47.0) Mean Corpuscular Volume 92 fL (79-100) Mean Corpuscular Hemoglobin 30 pg (25-35) Mean Corpuscular Hemoglobin Concent 33 g/dL (31-37) Red Cell Distribution Width 12.5 % (11.5-14.5) Platelet Count 242 x10^3/uL (140-400) Neutrophils (%) (Auto) 87 % (31-73) Lymphocytes (%) (Auto) 2 % (24-48) Monocytes (%) (Auto) 10 % (0-9) Eosinophils (%) (Auto) 0 % (0-3) Basophils (%) (Auto) 0 % (0-3) Neutrophils # (Auto) 16.4 x10^3/uL (1.8-7.7) Lymphocytes # (Auto) 0.4 x10^3/uL (1.0-4.8) Monocytes # (Auto) 1.9 x10^3/uL (0.0-1.1) Eosinophils # (Auto) 0.0 x10^3/uL (0.0-0.7) Basophils # (Auto) 0.0 x10^3/uL (0.0-0.2) Segmented Neutrophils % 75 % (35-66) Band Neutrophils % 17 % (0-9) Lymphocytes % 1 % (24-48) Monocytes % 6 % (0-10) Basophils % 1 % (0-3) Toxic Granulation Slight Platelet Estimate Adequate (ADEQUATE) Prothrombin Time 13.6 SEC (11.7-14.0) Prothromb Time International Ratio 1.1 (0.8-1.1) Sodium Level 138 mmol/L (136-145) Potassium Level 3.2 mmol/L (3.5-5.1) Chloride Level 101 mmol/L (98-107) Carbon Dioxide Level 24 mmol/L (21-32) Anion Gap 13 (6-14) Blood Urea Nitrogen 14 mg/dL (7-20) Creatinine 0.8 mg/dL (0.6-1.0) Estimated GFR (Cockcroft-Gault) 72.4 BUN/Creatinine Ratio 18 (6-20) Glucose Level 136 mg/dL (70-99) Lactic Acid Level 1.0 mmol/L (0.4-2.0) Calcium Level 9.0 mg/dL (8.5-10.1) Total Bilirubin 0.8 mg/dL (0.2-1.0) Aspartate Amino Transf (AST/SGOT) 30 U/L (15-37) Alanine Aminotransferase (ALT/SGPT) 27 U/L (14-59) Alkaline Phosphatase 110 U/L (46-116) Total Protein 7.1 g/dL (6.4-8.2) Albumin 3.3 g/dL (3.4-5.0) Albumin/Globulin Ratio 0.9 (1.0-1.7) Laboratory Tests Test 07/02/20 14:00 07/02/20 14:30 07/02/20 14:37 Urine Collection Type Unknown Urine Color Yellow Urine Clarity Clear Urine pH 6.0 (<5.0-8.0) Urine Specific [place] 1.015 (1.000-1.030) Urine Protein 100 mg/dL (NEG-TRACE) Urine Glucose (UA) Negative mg/dL (NEG) Urine Ketones (Stick) Negative mg/dL (NEG) Urine Blood Small (NEG) Urine Nitrite Negative (NEG) Urine Bilirubin Negative (NEG) Urine Urobilinogen Dipstick 0.2 mg/dL (0.2 mg/dL) Urine Leukocyte Esterase Moderate (NEG) Urine RBC Occ /HPF (0-2) Urine WBC 20-40 /HPF (0-4) Urine Squamous Epithelial Cells Few /LPF Urine Bacteria Many /HPF (0-FEW) Urine Mucus Mod /LPF Influenza Type A Antigen Negative (NEGATIVE) Influenza Type B Antigen Negative (NEGATIVE) White Blood Count 18.8 x10^3/uL (4.0-11.0) Red Blood Count 3.55 x10^6/uL (3.50-5.40) Hemoglobin 10.8 g/dL (12.0-15.5) Hematocrit 32.5 % (36.0-47.0) Mean Corpuscular Volume 92 fL (79-100) Mean Corpuscular Hemoglobin 30 pg (25-35) Mean Corpuscular Hemoglobin Concent 33 g/dL (31-37) Red Cell Distribution Width 12.5 % (11.5-14.5) Platelet Count 242 x10^3/uL (140-400) Neutrophils (%) (Auto) 87 % (31-73) Lymphocytes (%) (Auto) 2 % (24-48) Monocytes (%) (Auto) 10 % (0-9) Eosinophils (%) (Auto) 0 % (0-3) Basophils (%) (Auto) 0 % (0-3) Neutrophils # (Auto) 16.4 x10^3/uL (1.8-7.7) Lymphocytes # (Auto) 0.4 x10^3/uL (1.0-4.8) Monocytes # (Auto) 1.9 x10^3/uL (0.0-1.1) Eosinophils # (Auto) 0.0 x10^3/uL (0.0-0.7) Basophils # (Auto) 0.0 x10^3/uL (0.0-0.2) Segmented Neutrophils % 75 % (35-66) Band Neutrophils % 17 % (0-9) Lymphocytes % 1 % (24-48) Monocytes % 6 % (0-10) Basophils % 1 % (0-3) Toxic Granulation Slight Platelet Estimate Adequate (ADEQUATE) Prothrombin Time 13.6 SEC (11.7-14.0) Prothromb Time International Ratio 1.1 (0.8-1.1) Sodium Level 138 mmol/L (136-145) Potassium Level 3.2 mmol/L (3.5-5.1) Chloride Level 101 mmol/L (98-107) Carbon Dioxide Level 24 mmol/L (21-32) Anion Gap 13 (6-14) Blood Urea Nitrogen 14 mg/dL (7-20) Creatinine 0.8 mg/dL (0.6-1.0) Estimated GFR (Cockcroft-Gault) 72.4 BUN/Creatinine Ratio 18 (6-20) Glucose Level 136 mg/dL (70-99) Lactic Acid Level 1.0 mmol/L (0.4-2.0) Calcium Level 9.0 mg/dL (8.5-10.1) Total Bilirubin 0.8 mg/dL (0.2-1.0) Aspartate Amino Transf (AST/SGOT) 30 U/L (15-37) Alanine Aminotransferase (ALT/SGPT) 27 U/L (14-59) Alkaline Phosphatase 110 U/L (46-116) Total Protein 7.1 g/dL (6.4-8.2) Albumin 3.3 g/dL (3.4-5.0) Albumin/Globulin Ratio 0.9 (1.0-1.7) Images: Images CT ABD PELVIS IMPRESSION: 1. Mild bilateral hydronephrosis and proximal periureteral stranding. No obstructing lesion is seen. Correlate with urinalysis to changes due to an ascending urinary tract infection. 2. Small simple left renal cyst. There are also small hypodense lesions within the left kidney measure too small to characterize. These may be complicated cysts. Renal sonography can be performed to confirm the [place] 3. Biliary ductal dilatation. This can be seen with reservoir effect status post cholecystectomy. Assessment/Plan Assessment/Plan Sepsis Acute lower abdominal pain due to mild bilateral hydronephrosis and proximal periureteral stranding Acute pyelonephritis Small simple left renal cyst. Sepsis Anemia of chronic disease Hypokalemia Admit to medicine for further management Continue empiric IV antibiotics Pending urine cultures Continue IV fluids Pending renal ultrasound to rule out renal lesion and postobstructive uropathy Strict I's and O's Lovenox for DVT prophylaxis ADA diet Full code Discussed with RN and SW Disposition inpatient care as above Surrogate decision maker is the Justifications for Admission Other Justification ERIC YEPEZ MD Jul 02, 2020 18:45
[2020-07-02 19:00] VITALS: BP 158/87
[2020-07-02] MEDS ORDERED: POTASSIUM CHLORIDE 20 MEQ TABLET.ER. PO PRN (19:00)
[2020-07-02] MEDS ORDERED: SENNOSIDES 8.6 MG TABLET PO PRN (19:00)
[2020-07-02] MEDS ORDERED: ELECTROLYTE (NON-ICU) PROTOCOL. MC PRN (19:00)
[2020-07-02] MEDS ORDERED: ONDANSETRON PF 4 MG/2 ML VIAL. IVP PRN (19:00)
[2020-07-02] MEDS ORDERED: POTASSIUM CHLORIDE 10MEQ 100 ML IV SCH (19:00)
[2020-07-02] MEDS ORDERED: DOCUSATE SODIUM 100 MG CAPSULE. PO PRN (19:00)
[2020-07-02] MEDS ORDERED: DEXTROSE 50% 25 GM / 50ML DISP.SYRIN. IV PRN (19:00)
[2020-07-02] MEDS ORDERED: POTASSIUM CHLORIDE 10MEQ 100 ML IV PRN (19:00)
[2020-07-02] MEDS ORDERED: MAGNESIUM SULFATE 2GM 50 ML IV SCH (19:00)
[2020-07-02] MEDS: IV NORMAL SALINE 1000ML BAG 1,000 ML IV SCH (20:39)
[2020-07-02] MEDS: ENOXAPARIN 40 MG/0.4 ML SYRINGE. SQ SCH (20:48)
[2020-07-02] MEDS: oxyCODONE/APAP 5/325 1 TAB TABLET PO PRN (20:48)
[2020-07-02] MEDS ORDERED: MAGNESIUM OXIDE 400 MG TABLET PO SCH (21:00)
--- NOTE | 2020-07-02 21:02 | RAD ---
Complete renal ultrasound INDICATION: Pyelonephritis. TECHNIQUE: Grayscale and color Doppler imaging of the retroperitoneum was performed FINDINGS: Right kidney measures 12.8 x 6.6 x 5.6 cm and demonstrates grade 1-2 hydronephrosis. Normal flow on color Doppler. Left kidney measures 12.5 x 5.4 x 5.3 cm and demonstrates grade 1-2 hydronephrosis. Normal flow on color Doppler. Lower pole left renal 1.7 cm cyst is present. The bladder was not fully distended. No ureteral jets identified. IMPRESSION: Grade 1-2 bilateral hydronephrosis with suboptimally visualized urinary bladder due to incomplete distention. No stones in the urinary tract and no ureteral jets were identified. Electronically signed by: Tony Ambriz MD (07/02/2020 8:58 PM) [facility] [place]
[2020-07-02] MEDS: ACETAMINOPHEN 325 MG TABLET. PO PRN (22:46)
[2020-07-02 23:00] VITALS: BP 100/55
[2020-07-02] MEDS: PIPERACILLIN/TAZOBACTAM 3.375 GM in IV NORMAL SALINE 50ML 50 ML IV SCH (23:48)
[2020-07-03 03:00] VITALS: BP 121/62
[2020-07-03] MEDS: PIPERACILLIN/TAZOBACTAM 3.375 GM in IV NORMAL SALINE 50ML 50 ML IV SCH ×3 (05:06→18:42)
[2020-07-03] MEDS: oxyCODONE/APAP 5/325 1 TAB TABLET PO PRN ×4 (05:10→20:54)
[2020-07-03 07:05] VITALS: BP 136/65
[2020-07-03 07:05] LABS: CALCIUM 8.2 mg/dL (8.5-10.1); CREATININE 0.8 mg/dL (0.6-1.0); GFR 72.4; MAGNESIUM 2.1 mg/dL (1.8-2.4); PHOSPHORUS 1.4 mg/dL (2.6-4.7)
[2020-07-03 07:11] LABS: POTASSIUM 2.7 mmol/L (3.5-5.1)
[2020-07-03 07:15] LABS: BASO % 0 % (0-3); EOS % 0 % (0-3); HEMATOCRIT 28.7 % (36.0-47.0); HEMOGLOBIN 9.5 g/dL (12.0-15.5); LYMPH # 0.5 x10^3/uL (1.0-4.8); LYMPH % 3 % (24-48); MEAN CORPUSCULAR HEMOGLOBIN 30 pg (25-35); MEAN CORPUSCULAR HGB CONC 33 g/dL (31-37); MEAN CORPUSCULAR VOLUME 92 fL (79-100); MONO # 1.5 x10^3/uL (0.0-1.1); MONO % 10 % (0-9); NEUT # 13.3 x10^3/uL (1.8-7.7); NEUT % 87 % (31-73); PLATELET COUNT 199 x10^3/uL (140-400); RED BLOOD COUNT 3.14 x10^6/uL (3.50-5.40); RED CELL DISTRIBUTION WIDTH 12.5 % (11.5-14.5); WHITE BLOOD COUNT 15.3 x10^3/uL (4.0-11.0)
[2020-07-03] MEDS: IV NORMAL SALINE 1000ML BAG 1,000 ML IV SCH ×2 (09:11→16:16)
[2020-07-03] MEDS: ACETAMINOPHEN 325 MG TABLET. PO PRN ×2 (09:11→14:06)
[2020-07-03] MEDS: POTASSIUM CHLORIDE 10MEQ 100 ML IV SCH ×4 (09:12→13:00)
[2020-07-03 11:05] VITALS: BP 140/64
--- NOTE | 2020-07-03 12:14 | PDOC ---
[employer] PROGRESS NOTE Date of Service DOS: DATE: 07/03/20 TIME: 12:12 Chief Complaint Chief Complaint Sepsis Acute lower abdominal pain due to mild bilateral hydronephrosis and proximal periureteral stranding Acute pyelonephritis Hypokalemia and hypophosphatemia Small simple left renal cyst. Sepsis Anemia of chronic disease Hypokalemia IV electrolytes replace as needed Continue empiric IV antibiotics Pending blood and urine cultures Continue IV fluids Pending renal ultrasound to rule out renal lesion and postobstructive uropathy Strict I's and O's Lovenox for DVT prophylaxis ADA diet Full code Discussed with RN and SW Disposition inpatient care as above Surrogate decision maker is the History of Present Illness History of Present Illness 07/03/2020 No acute events overnight. Patient has a fever 1-1.8 in the last 24 hours. We will continue with IV Zosyn. Patient's chart, labs, images were reviewed and discussed with RN 65 year old female who presents with 2 days of right lower dull aching abdominal pain with a fever that began to radiate to the left side.. Patient states her fever this morning was 102.7. Here in ED her temperature was 100.7. Before coming around noon patient took Ibuprofen and [employer]. Patient states that she is slightly nauseated but has been eating and drinking. She states that she does have a lack of appetite and ate last yesterday. She denies vomiting, diarrhea, constipation, urinary symptoms, back pain, chest pain, shortness of air, cough, headache, dizziness, numbness or tingling. Nothing makes her pain worse or better. She is rating her pain a 7 out of 10. Denies any bloody urine, brown urine, or bloody stools. Vitals/I&O Vitals/I&O: Vital Signs Date Time Temp Pulse Resp B/P (MAP) Pulse Ox O2 Delivery O2 Flow Rate FiO2 07/03/20 11:05 101.5 90 16 140/64 (89) 96 Room Air 101.5 I & O 07/02/20 07/02/20 07/03/20 15:00 23:00 07:00 Intake Total 1000 ml 170 ml Balance 1000 ml 170 ml Physical Exam Lungs: Clear Labs Labs: Laboratory Tests Test 07/02/20 14:00 07/02/20 14:30 11/4/20 14:37 07/03/20 06:16 Urine Collection Type Unknown Urine Color Yellow Urine Clarity Clear Urine pH 6.0 (<5.0-8.0) Urine Specific [place] 1.015 (1.000-1.030) Urine Protein 100 mg/dL (NEG-TRACE) Urine Glucose (UA) Negative mg/dL (NEG) Urine Ketones (Stick) Negative mg/dL (NEG) Urine Blood Small (NEG) Urine Nitrite Negative (NEG) Urine Bilirubin Negative (NEG) Urine Urobilinogen Dipstick 0.2 mg/dL (0.2 mg/dL) Urine Leukocyte Esterase Moderate (NEG) Urine RBC Occ /HPF (0-2) Urine WBC 20-40 /HPF (0-4) Urine Squamous Epithelial Cells Few /LPF Urine Bacteria Many /HPF (0-FEW) Urine Mucus Mod /LPF Influenza Type A Antigen Negative (NEGATIVE) Influenza Type B Antigen Negative (NEGATIVE) White Blood Count 18.8 x10^3/uL (4.0-11.0) 15.3 x10^3/uL (4.0-11.0) Red Blood Count 3.55 x10^6/uL (3.50-5.40) 3.14 x10^6/uL (3.50-5.40) Hemoglobin 10.8 g/dL (12.0-15.5) 9.5 g/dL (12.0-15.5) Hematocrit 32.5 % (36.0-47.0) 28.7 % (36.0-47.0) Mean Corpuscular Volume 92 fL (79-100) 92 fL (79-100) Mean Corpuscular Hemoglobin 30 pg (25-35) 30 pg (25-35) Mean Corpuscular Hemoglobin Concent 33 g/dL (31-37) 33 g/dL (31-37) Red Cell Distribution Width 12.5 % (11.5-14.5) 12.5 % (11.5-14.5) Platelet Count 242 x10^3/uL (140-400) 199 x10^3/uL (140-400) Neutrophils (%) (Auto) 87 % (31-73) 87 % (31-73) Lymphocytes (%) (Auto) 2 % (24-48) 3 % (24-48) Monocytes (%) (Auto) 10 % (0-9) 10 % (0-9) Eosinophils (%) (Auto) 0 % (0-3) 0 % (0-3) Basophils (%) (Auto) 0 % (0-3) 0 % (0-3) Neutrophils # (Auto) 16.4 x10^3/uL (1.8-7.7) 13.3 x10^3/uL (1.8-7.7) Lymphocytes # (Auto) 0.4 x10^3/uL (1.0-4.8) 0.5 x10^3/uL (1.0-4.8) Monocytes # (Auto) 1.9 x10^3/uL (0.0-1.1) 1.5 x10^3/uL (0.0-1.1) Eosinophils # (Auto) 0.0 x10^3/uL (0.0-0.7) 0.0 x10^3/uL (0.0-0.7) Basophils # (Auto) 0.0 x10^3/uL (0.0-0.2) 0.0 x10^3/uL (0.0-0.2) Segmented Neutrophils % 75 % (35-66) Band Neutrophils % 17 % (0-9) Lymphocytes % 1 % (24-48) Monocytes % 6 % (0-10) Basophils % 1 % (0-3) Toxic Granulation Slight Platelet Estimate Adequate (ADEQUATE) Prothrombin Time 13.6 SEC (11.7-14.0) Prothromb Time International Ratio 1.1 (0.8-1.1) Sodium Level 138 mmol/L (136-145) 141 mmol/L (136-145) Potassium Level 3.2 mmol/L (3.5-5.1) 2.7 mmol/L (3.5-5.1) Chloride Level 101 mmol/L (98-107) 106 mmol/L (98-107) Carbon Dioxide Level 24 mmol/L (21-32) 24 mmol/L (21-32) Anion Gap 13 (6-14) 11 (6-14) Blood Urea Nitrogen 14 mg/dL (7-20) 10 mg/dL (7-20) Creatinine 0.8 mg/dL (0.6-1.0) 0.8 mg/dL (0.6-1.0) Estimated GFR (Cockcroft-Gault) 72.4 72.4 BUN/Creatinine Ratio 18 (6-20) Glucose Level 136 mg/dL (70-99) 166 mg/dL (70-99) Lactic Acid Level 1.0 mmol/L (0.4-2.0) Calcium Level 9.0 mg/dL (8.5-10.1) 8.2 mg/dL (8.5-10.1) Total Bilirubin 0.8 mg/dL (0.2-1.0) Aspartate Amino Transf (AST/SGOT) 30 U/L (15-37) Alanine Aminotransferase (ALT/SGPT) 27 U/L (14-59) Alkaline Phosphatase 110 U/L (46-116) Total Protein 7.1 g/dL (6.4-8.2) Albumin 3.3 g/dL (3.4-5.0) Albumin/Globulin Ratio 0.9 (1.0-1.7) Phosphorus Level 1.4 mg/dL (2.6-4.7) Magnesium Level 2.1 mg/dL (1.8-2.4) Assessment and Plan Assessmemt and Plan Problems Medical Problems: (1) Pyelonephritis Status: Acute Comment Review of Relevant I have reviewed the following items steffanie (where applicable) has been applied. Medications: Current Medications Medications (Trade) Dose Ordered Sig/Maria Eugenia Route PRN Reason Start Time Stop Time Status Last Admin Dose Admin Sodium Chloride 1,000 ml @ 1,000 mls/hr 1X ONCE IV 07/02/20 15:00 07/02/20 15:59 DC 07/02/20 15:00 Fentanyl Citrate (Fentanyl 2ml Vial) 50 mcg 1X ONCE IVP 07/02/20 15:00 07/02/20 15:01 DC 07/02/20 15:12 Iohexol (Omnipaque 300 Mg/ml) 75 ml 1X ONCE IV 07/02/20 15:45 07/02/20 15:46 DC 07/02/20 15:55 Ceftriaxone Sodium (Rocephin) 1 gm 1X ONCE IVP 07/02/20 16:15 07/02/20 16:16 DC 07/02/20 17:33 Fentanyl Citrate (Fentanyl 2ml Vial) 50 mcg PRN Q1HR PRN IV PAIN 07/02/20 17:30 07/03/20 17:29 07/02/20 23:47 Acetaminophen (Tylenol) 650 mg PRN Q4HRS PRN PO FEVER > 100.3'F 07/02/20 17:30 07/03/20 17:29 07/03/20 09:11 Sodium Chloride 1,000 ml @ 100 mls/hr Q10H IV 07/02/20 18:46 07/03/20 09:11 Piperacillin Sod/ Tazobactam Sod 3.375 gm/Sodium Chloride 50 ml @ 100 mls/hr Q6HRS IV 07/03/20 00:00 07/03/20 05:06 Enoxaparin Sodium (Lovenox 40mg Syringe) 40 mg Q24H SQ 07/02/20 21:00 07/02/20 20:48 Oxycodone/ Acetaminophen (Percocet 5/325) 1 tab PRN Q4HRS PRN PO MILD PAIN, 1ST CHOICE 07/02/20 19:00 07/03/20 09:29 Oxycodone/ Acetaminophen (Percocet 5/325) 2 tab PRN Q4HRS PRN PO MODERATE PAIN, SEVERE PAIN 07/02/20 19:00 07/02/20 20:48 Potassium Chloride/Water 100 ml @ 100 mls/hr Q1H IV 07/03/20 08:00 07/03/20 11:59 DC 07/03/20 11:54 Justifications for Admission Other Justification sepsis ERIC YEPEZ MD Jul 03, 2020 12:14
[2020-07-03] MEDS ORDERED: POTASSIUM CHLORIDE 20 MEQ TABLET.ER. PO ONE ×2 (13:00→17:00)
--- NOTE | 2020-07-03 13:15 | NUR ---
SW following for discharge planning. Spoke with RN and reviewed chart. Pt from home with spouse. Pt on room air, MARCI waller, ant Melendez. SW attempted to call into pt's room, no answer. PT to evaluate. SW to follow. Addendum: 07/07/20 at 1148 by HANS HUDSON PT recommendation for HH. Pt declined and discharged home, self-care. No further SW needs at this time.
[2020-07-03] MEDS: POTASSIUM PHOS,M-BASIC-D-BASIC 10 MMOL in IV NORMAL SALINE 100ML 100 ML IV SCH ×3 (14:06→20:56)
[2020-07-03 15:05] VITALS: BP 141/62
[2020-07-03] MEDS ORDERED: ALBU2.5V8 IH (16:41)
[2020-07-03] MEDS ORDERED: IBUP400T99 PO (16:41)
[2020-07-03 19:00] VITALS: BP 113/66
[2020-07-03] MEDS: LACTOBACILLUS RHAMNOSUS GG 1 CAPSULE. PO SCH (20:53)
[2020-07-03] MEDS: ENOXAPARIN 40 MG/0.4 ML SYRINGE. SQ SCH (20:53)
[2020-07-03 23:00] VITALS: BP 116/59
[2020-07-04] MEDS: PIPERACILLIN/TAZOBACTAM 3.375 GM in IV NORMAL SALINE 50ML 50 ML IV SCH ×4 (00:04→18:14)
[2020-07-04] MEDS: IV NORMAL SALINE 1000ML BAG 1,000 ML IV SCH ×3 (00:05→18:14)
[2020-07-04] MEDS: oxyCODONE/APAP 5/325 1 TAB TABLET PO PRN ×4 (02:56→21:13)
[2020-07-04 03:00] VITALS: BP 116/59
[2020-07-04 07:00] VITALS: BP 129/20
[2020-07-04 07:42] LABS: CALCIUM 8.2 mg/dL (8.5-10.1); CREATININE 0.6 mg/dL (0.6-1.0); MAGNESIUM 2.2 mg/dL (1.8-2.4); POTASSIUM 3.9 mmol/L (3.5-5.1)
[2020-07-04 07:53] LABS: BASO % 0 % (0-3); EOS # 0.1 x10^3/uL (0.0-0.7); EOS % 1 % (0-3); HEMATOCRIT 27.4 % (36.0-47.0); LYMPH # 0.5 x10^3/uL (1.0-4.8); LYMPH % 5 % (24-48); MEAN CORPUSCULAR HEMOGLOBIN 31 pg (25-35); MEAN CORPUSCULAR HGB CONC 33 g/dL (31-37); MEAN CORPUSCULAR VOLUME 93 fL (79-100); MONO # 0.7 x10^3/uL (0.0-1.1); MONO % 7 % (0-9); NEUT % 87 % (31-73); PLATELET COUNT 175 x10^3/uL (140-400); RED BLOOD COUNT 2.93 x10^6/uL (3.50-5.40); RED CELL DISTRIBUTION WIDTH 13.1 % (11.5-14.5); WHITE BLOOD COUNT 9.3 x10^3/uL (4.0-11.0)
[2020-07-04] MEDS: LACTOBACILLUS RHAMNOSUS GG 1 CAPSULE. PO SCH ×2 (08:45→21:11)
[2020-07-04 11:00] VITALS: BP 124/64
--- NOTE | 2020-07-04 11:11 | PDOC ---
[employer] PROGRESS NOTE Date of Service DOS: DATE: 07/04/20 TIME: 11:08 Chief Complaint Chief Complaint Sepsis Acute lower abdominal pain due to mild bilateral hydronephrosis and proximal periureteral stranding Acute pyelonephritis Hypokalemia and hypophosphatemia Small simple left renal cyst. Sepsis Anemia of chronic disease Hypokalemia IV electrolytes replace as needed Continue empiric IV antibiotics Pending blood and urine cultures Continue IV fluids Strict I's and O's Lovenox for DVT prophylaxis ADA diet Full code Discussed with RN and SW Disposition inpatient care as above Surrogate decision maker is the History of Present Illness History of Present Illness 07/04/2020 Patient with fever improving T-max of 103 F since 3:00 PM yesterday. No complaints voiced at this time. Still awaiting urine cultures to narrow antibiotics. Patient's chart, labs, images were reviewed and discussed with RN 07/03/2020 No acute events overnight. Patient has a fever 1-1.8 in the last 24 hours. We will continue with IV Zosyn. Patient's chart, labs, images were reviewed and discussed with RN 65 year old female who presents with 2 days of right lower dull aching abdominal pain with a fever that began to radiate to the left side.. Patient states her fever this morning was 102.7. Here in ED her temperature was 100.7. Before coming around noon patient took Ibuprofen and [place]. Patient states that she is slightly nauseated but has been eating and drinking. She states that she does have a lack of appetite and ate last yesterday. She denies vomiting, diarrhea, constipation, urinary symptoms, back pain, chest pain, shortness of air, cough, headache, dizziness, numbness or tingling. Nothing makes her pain worse or better. She is rating her pain a 7 out of 10. Denies any bloody urine, brown urine, or bloody stools. Vitals/I&O Vitals/I&O: Vital Signs Date Time Temp Pulse Resp B/P (MAP) Pulse Ox O2 Delivery O2 Flow Rate FiO2 07/04/20 11:00 98.3 78 18 124/64 (84) 96 Room Air 98.3 I & O 07/03/20 07/03/20 07/04/20 15:00 23:00 07:00 Intake Total 240 ml 500 ml Balance 240 ml 500 ml Physical Exam General: Alert, Oriented X3, Cooperative Heart: Regular rate Lungs: Clear Abdomen: Normal bowel sounds Extremities: No edema Skin: No breakdown Labs Labs: Laboratory Tests Test 07/03/20 20:15 07/04/20 04:35 Potassium Level 3.7 mmol/L (3.5-5.1) 3.9 mmol/L (3.5-5.1) White Blood Count 9.3 x10^3/uL (4.0-11.0) Red Blood Count 2.93 x10^6/uL (3.50-5.40) Hemoglobin 9.0 g/dL (12.0-15.5) Hematocrit 27.4 % (36.0-47.0) Mean Corpuscular Volume 93 fL (79-100) Mean Corpuscular Hemoglobin 31 pg (25-35) Mean Corpuscular Hemoglobin Concent 33 g/dL (31-37) Red Cell Distribution Width 13.1 % (11.5-14.5) Platelet Count 175 x10^3/uL (140-400) Neutrophils (%) (Auto) 87 % (31-73) Lymphocytes (%) (Auto) 5 % (24-48) Monocytes (%) (Auto) 7 % (0-9) Eosinophils (%) (Auto) 1 % (0-3) Basophils (%) (Auto) 0 % (0-3) Neutrophils # (Auto) 8.0 x10^3/uL (1.8-7.7) Lymphocytes # (Auto) 0.5 x10^3/uL (1.0-4.8) Monocytes # (Auto) 0.7 x10^3/uL (0.0-1.1) Eosinophils # (Auto) 0.1 x10^3/uL (0.0-0.7) Basophils # (Auto) 0.0 x10^3/uL (0.0-0.2) Sodium Level 142 mmol/L (136-145) Chloride Level 109 mmol/L (98-107) Carbon Dioxide Level 23 mmol/L (21-32) Anion Gap 10 (6-14) Blood Urea Nitrogen 6 mg/dL (7-20) Creatinine 0.6 mg/dL (0.6-1.0) Estimated GFR (Cockcroft-Gault) 101.0 Glucose Level 157 mg/dL (70-99) Calcium Level 8.2 mg/dL (8.5-10.1) Phosphorus Level 2.0 mg/dL (2.6-4.7) Magnesium Level 2.2 mg/dL (1.8-2.4) Assessment and Plan Assessmemt and Plan Problems Medical Problems: (1) Pyelonephritis Status: Acute Comment Review of Relevant I have reviewed the following items steffanie (where applicable) has been applied. Medications: Current Medications Medications (Trade) Dose Ordered Sig/Maria Eugenia Route PRN Reason Start Time Stop Time Status Last Admin Dose Admin Potassium Phosphate 10 mmol/ Sodium Chloride 103.3333 ml @ 51.667 m... Q2H IV 07/03/20 13:00 07/03/20 18:59 DC 07/03/20 20:56 Potassium Chloride (Klor-Con) 40 meq 1X ONCE PO 07/03/20 13:00 07/03/20 13:01 DC 07/03/20 13:00 Potassium Chloride (Klor-Con) 40 meq 1X ONCE PO 07/03/20 17:00 07/03/20 17:01 DC 07/03/20 17:13 Lactobacillus Rhamnosus (Culturelle) 1 cap BID PO 07/03/20 21:00 07/04/20 08:45 Justifications for Admission Other Justification sepsis ERIC YEPEZ MD Jul 04, 2020 11:11
[2020-07-04 15:00] VITALS: BP 141/71
[2020-07-04 19:00] VITALS: BP 128/71
[2020-07-04] MEDS: ENOXAPARIN 40 MG/0.4 ML SYRINGE. SQ SCH (21:11)
[2020-07-04 23:00] VITALS: BP 124/71
[2020-07-05] MEDS: PIPERACILLIN/TAZOBACTAM 3.375 GM in IV NORMAL SALINE 50ML 50 ML IV SCH ×3 (00:12→12:00)
[2020-07-05] MEDS: oxyCODONE/APAP 5/325 1 TAB TABLET PO PRN ×3 (02:30→12:00)
[2020-07-05 03:22] VITALS: BP 142/88
[2020-07-05] MEDS: IV NORMAL SALINE 1000ML BAG 1,000 ML IV SCH (05:26)
[2020-07-05 07:00] VITALS: BP 126/72
[2020-07-05] MEDS: LACTOBACILLUS RHAMNOSUS GG 1 CAPSULE. PO SCH (08:14)
[2020-07-05 10:42] VITALS: BP 135/69
[2020-07-05] MEDS ORDERED: SULF1TAB24 PO (13:45)
--- NOTE | 2020-07-05 13:46 | DISCH ---
DISCHARGE INSTRUCTIONS Condition on Discharge Condition on Discharge: Stable Activity After Discharge Activity Instructions for Disc: Avoid exertion Bathing Instructions: Shower-keep dressing dry, No Tub Bath until see Lifting Instructions after Dis: No heavy lifting, No pulling or pushing, Do not lift >10 pounds Driving Instructions after Dis: No driving for 2 weeks Weight Bearing Status after Di: No restrictions Diet after Discharge Diet after Discharge: Regular Diet Texture: Regular Liquid Texture: Thin Liquid Swallowing Supervision: None needed Wound Incision Care Wound/Incision Care: Ice to area for comfort, May get incision wet Wound Care Equipment: Sutures/frandy Checks after Discharge DC Comment: take stool softeners when feeling constipated Contacting the DRLidya after DC Call your doctor for: Fever greater than 100 Follow-Up Follow up with: PCP in 2 weeks Treatment/Equipment after DC Adaptive Equipment Issued: None ERIC YEPEZ MD Jul 05, 2020 13:46
--- NOTE | 2020-07-05 14:30 | NUR ---
Discharge Note: AMIRA ALEX Discharge instructions and discharge home medications reviewed with Patient and a copy given. All questions have been answered and understanding verbalized. The following instructions and handouts were given: Patient given education regarding new antibiotics. Discontinued lines and drains: Iv removed per protocol. Patient discharged home, picked up by .
--- NOTE | 2020-07-07 20:22 | PDOC3 ---
[facility]-Discharge Summary Date of Admission: Date of Admission: Jul 02, 2020 Date of Discharge: Date of Discharge: Jul 05, 2020 Discharge Diagnosis: Discharge Diagnosis: Sepsis Acute lower abdominal pain due to mild bilateral hydronephrosis and proximal periureteral stranding Acute pyelonephritis Hypokalemia and hypophosphatemia Small simple left renal cyst. Sepsis Anemia of chronic disease Hypokalemia Hospital Course: Hospital Course: 65 year old female who presents with 2 days of right lower dull aching abdominal pain with a fever that began to radiate to the left side.. Patient states her fever this morning was 102.7. Here in ED her temperature was 100.7. Before coming around noon patient took Ibuprofen and Bern. Patient states that she is slightly nauseated but has been eating and drinking. She states that she does have a lack of appetite and ate last yesterday. She denies vomiting, diarrhea, constipation, urinary symptoms, back pain, chest pain, shortness of air, cough, headache, dizziness, numbness or tingling. Nothing makes her pain worse or better. She is rating her pain a 7 out of 10. Denies any bloody urine, brown urine, or bloody stools. Patient's fever abated by the time of her discharge and she clinically felt better without any ABD pain. Hew WBC trended down and her UCx resulted in alvarez sensitive Ecoli. Patient will be discharged with Bactrime to completed her course of Abx. The rest of her hospital course was uneventful. Disposition: Disposition/Orders: D/C to Home Activity: Activity: Resume previous activity Diet: Diet: Regular Medications: Home Meds Active Scripts Sulfamethoxazole/Trimethoprim (BACTRIM DS TABLET) 1 Each Tablet, 1 TAB PO BID for uti for 4 Days, #8 TAB 0 Refills Prov:ERIC YEPEZ MD 07/05/20 Reported Medications Albuterol Sulfate (PROAIR HFA INHALER) 8.5 Gm Hfa.aer.ad, 2 PUFF IH PRN Q4-6HRS PRN for wheezing for 21 Days, #1 INHALER 0 Refills 07/03/20 Ibuprofen (Ibu) 400 Mg Tablet, 1 TAB PO TID for unknown for 5 Days, #15 TAB 0 Refills NEEDED FOR PAIN 07/03/20 Acetaminophen (TYLENOL) 325 Mg Tablet, 500 MG PO TID for NSAID, TAB 11/18/17 [Red Rice Yeast] No Conflict Check, 1 TAB HS 11/18/17 Fexofenadine Hcl (LONNIE ALLERGY) 180 Mg Tablet, 1 TAB PO DAILY, #30 TAB 2 Refills 11/18/17 Irbesartan/Hydrochlorothiazide (AVALIDE 300-12.5 MG TABLET) 1 Each Tablet, 1 EACH PO DAILY, TAB 11/18/17 Sertraline Hcl (ZOLOFT) 25 Mg Tablet, 100 MG PO DAILY for ANTI-DEPRESSANT, TAB 0 Refills 08/10/17 Bupropion Hcl (WELLBUTRIN XL) 150 Mg Tab.er.24h, 1 TAB PO DAILYWBKFT, #30 TAB 2 Refills 08/10/17 Rosuvastatin Calcium (CRESTOR) 10 Mg Tablet, 10 MG PO UD for FOR CHOLESTEROL, #30 TAB 0 Refills 08/10/17 Montelukast Sodium (MONTELUKAST SODIUM TABLET ) 10 Mg Tablet, 10 MG PO HS for FOR ASTHMA, #30 TAB 0 Refills 08/10/17 Amlodipine Besylate (AMLODIPINE BESYLATE) 10 Mg Tablet, 5 MG PO DAILY for blood pressure, TAB 08/10/17 Fluticasone/Salmeterol (ADVAIR 500-50 DISKUS) 1 Each Disk.w.dev, 1 INH IH DAILY, INHALER 08/10/17 Discontinued Reported Medications Hydrocodone Bit/Acetaminophen (HYDROCODONE-APAP 7.5-325 ) 1 Each Tablet, 1 TAB PO PRN Q6HRS PRN for PAIN, TAB 0 Refills 08/10/17 Scheduled Acetaminophen (Tylenol), 500 MG PO TID, (Reported) Amlodipine Besylate (Amlodipine Besylate), 5 MG PO DAILY, (Reported) Bupropion Hcl (Wellbutrin Xl), 1 TAB PO DAILYWBKFT, (Reported) Fexofenadine Hcl (Lonnie Allergy), 1 TAB PO DAILY, (Reported) Fluticasone/Salmeterol (Advair 500-50 Diskus), 1 INH IH DAILY, (Reported) Ibuprofen (Ibu), 1 TAB PO TID, (Reported) Irbesartan/Hydrochlorothiazide (Avalide 300-12.5 Mg Tablet), 1 EACH PO DAILY, (Reported) Montelukast Sodium (Montelukast Sodium Tablet ), 10 MG PO HS, (Reported) Rosuvastatin Calcium (Crestor), 10 MG PO UD, (Reported) Sertraline Hcl (Zoloft), 100 MG PO DAILY, (Reported) Sulfamethoxazole/Trimethoprim (Bactrim Ds Tablet), 1 TAB PO BID [Red Rice Yeast], 1 TAB HS, (Reported) Scheduled PRN Albuterol Sulfate (Proair Hfa Inhaler), 2 PUFF IH PRN Q4-6HRS PRN for wheezing, (Reported) Discontinued Medications Hydrocodone Bit/Acetaminophen (Hydrocodone-Apap 7.5-325 ), 1 TAB PO PRN Q6HRS PRN for PAIN, (Reported) Total Time: Total Time: Total time spent was 40 minutes in preparing scripts, discharge planning with SW and RN, and preparing this discharge summary. Patient seen and examined on day of discharge. Justicifation of Admission Dx: Justifications for Admission: Justification of Admission Dx: Yes Sepsis: Parenteral Antimicrobial ERIC YEPEZ MD Jul 07, 2020 20:22
== END 2020-07-05 14:30 | disposition home or self-care (01) | DRG 872 ==
LOC: ER 13:09 → 5 NORTH 16:21 → 6 SOUTH 22:38 → 5 NORTH 07-03 18:00
PROVIDERS: ADMIT Internal Medicine; ATTEND Internal Medicine
DX: A41.9 Sepsis, unspecified organism (principal); N13.6 Pyonephrosis; D63.8 Anemia in other chronic diseases classified elsewhere; E78.00 Pure hypercholesterolemia, unspecified; E83.39 Other disorders of phosphorus metabolism; E87.6 Hypokalemia; I10 Essential (primary) hypertension; J45.909 Unspecified asthma, uncomplicated; N28.1 Cyst of kidney, acquired; Z87.891 Personal history of nicotine dependence; Z90.49 Acquired absence of other specified parts of digestive tract; Z90.710 Acquired absence of both cervix and uterus; Z96.659 Presence of unspecified artificial knee joint; F32.9 Major depressive disorder, single episode, unspecified; G89.29 Other chronic pain; K21.9 Gastro-esophageal reflux disease without esophagitis; Z20.828 Contact with and (suspected) exposure to other viral communicable diseases
CPT/HCPCS: 36415; 71045; 74177; 76770; 80048; 80053; 81001; 83605; 83735; 84100; 84132; 85007; 85025; 85610; 87040; 87086; 87804; 96361; 96374; 96375; 99285; J0696; J1650; J2543; J3010; J3480; J3490; J7030; Q9967; U0003; G0378